=== PATIENT | female | born 1950 | race Caucasian/White ===

== ENCOUNTER 2016-03-30 11:39 | Observation (INO) | payer MEDICARE, OTHER ==
[~2016-03-30] VITALS: Ht 149.9 cm; Wt 56.7 kg
[~2016-03-30 11:39] MED LIST: CIPRO PO; FAMO10TA43 PO; FLAGYL PO; [UNRECOGNIZED DRUG - CODE] PO
[2016-03-30] MEDS ORDERED: ONDANSETRON 4 MG/2 ML (SDV) Z0FRAN IVP ONE ×2 (11:45→13:15)
[2016-03-30] MEDS ORDERED: RX-NITROGLYCERIN 0.4 MG TAB BTL 25'S SL PRN (11:45)
[2016-03-30 12:03] LABS: BASOPHILS # (AUTO) 0.1 10^3/uL (0.0-0.1); BASOPHILS % (AUTO) 1 % (0-10); EOSINOPHILS # (AUTO) 0.1 10^3/uL (0.0-0.3); EOSINOPHILS % (AUTO) 2 % (0-10); LYMPHOCYTES # (AUTO) 2.8 X 10^3 (1.0-4.0); LYMPHOCYTES % (AUTO) 38 % (12-44); MEAN CORPUSCULAR HEMOGLOBIN 32 PG (25-34); MEAN CORPUSCULAR HGB CONC 33 G/DL (32-36); MEAN CORPUSCULAR VOLUME 96 FL (80-99); MEAN PLATELET VOLUME 9.2 FL (7.4-10.4); MONOCYTES # (AUTO) 0.6 X 10^3 (0.0-1.0); MONOCYTES % (AUTO) 9 % (0-12); NEUTROPHILS # (AUTO) 3.8 X 10^3 (1.8-7.8); NEUTROPHILS % (AUTO) 51 % (42-75); PLATELET COUNT 361 10^3/uL (130-400); RED BLOOD COUNT 4.57 10^6/uL (4.35-5.85); RED CELL DISTRIBUTION WIDTH 12.7 % (10.0-14.5); WHITE BLOOD COUNT 7.4 10^3/uL (4.3-11.0)
[2016-03-30] MEDS ORDERED: BUDE10.2 IH (12:06)
[2016-03-30] MEDS ORDERED: DICY20TA10 PO (12:06)
[2016-03-30] MEDS ORDERED: TIOT18CA2 IH (12:06)
[2016-03-30] MEDS ORDERED: DICY10CA12 PO (12:07)
[2016-03-30 12:13] LABS: PROTHROMBIN TIME PATIENT 12.7 SEC (12.2-14.7)
--- NOTE | 2016-03-30 12:23 | Diagnostic Imaging Report ---
INDICATION: Chest tightness and nausea with dyspnea. 1213 hrs. Comparison is made to study of 05/21/2015. Overall heart size and pulmonary vascularity remain within normal limits. There is extensive air trapping in the upper lobes. No pneumothorax is identified. There is no evidence of significant pleural fluid. IMPRESSION: Emphysema similar to previous study without new abnormality identified. Dictated by: Dictated on workstation # [id number]
[2016-03-30 13:10] LABS: ALANINE AMINOTRANSFERASE 17 U/L (0-55); ALBUMIN 4.1 G/DL (3.2-4.5); AMYLASE 22 U/L (25-125); ANION GAP 11 MMOL/L (5-14); ASPARTATE AMINO TRANSFERASE 16 U/L (5-34); BILIRUBIN,TOTAL 0.2 MG/DL (0.1-1.0); BLOOD UREA NITROGEN 12 MG/DL (7-18); BUN/CREATININE RATIO 16; CALCIUM 9.3 MG/DL (8.5-10.1); CARBON DIOXIDE 23 MMOL/L (21-32); CHLORIDE 104 MMOL/L (98-107); CREATINE KINASE 81 U/L (29-168); CREATININE SERUM 0.74 MG/DL (0.60-1.30); GFR ESTIMATED > 60; GLUCOSE 121 MG/DL (70-105); LIPASE 19 U/L (8-78); POTASSIUM 4.3 MMOL/L (3.6-5.0); SODIUM 138 MMOL/L (135-145)
[2016-03-30] MEDS ORDERED: PANTOPRAZOLE 40 MG/10 ML (PROTONIX) VIAL IV ONE (13:15)
[2016-03-30 13:17] LABS: TROPONIN I < 0.30 NG/ML (<0.30)
[2016-03-30] MEDS ORDERED: ENOXAPARIN 60 MG/0.6 ML (LOVENOX) SYR SC ONE (13:30)
--- OUTSIDE RECORDS SUMMARY | 2016-03-30 13:34 | XMS REPORT | Continuity of Care Document ---
Author Author [facility] Organization [facility] Address Unknown Phone Unavailable Allergies Active Description Code Type Severity Reaction Onset Reported/Identified Relationship to Patient Clinical Status Yes codeine [id number] Drug Allergy Moderate VOMITING 06/01/2011 Yes aspirin [id number] Drug Allergy Moderate SWELLING AROUND 06/02/2011 Medications Problems Date Dx Coded Attending Type Code Diagnosis Diagnosed By 06/03/2011 Ot 305.1 06/03/2011 Ot 455.3 06/03/2011 Ot 496 06/03/2011 Ot 562.10 06/03/2011 Ot 787.02 03/11/2015 Ot 719.45 03/11/2015 Ot 786.30 03/11/2015 JANINE GARCIA, NAOMY R Ot 719.45 03/11/2015 JANINE GARCIA, NAOMY R Ot 780.60 03/11/2015 JANINE GARCIA, NAOMY R Ot 780.79 03/17/2015 Ot 719.45 03/17/2015 Ot 786.30 03/17/2015 JANINE GARCIA, NAOMY R Ot 719.45 03/17/2015 JANINE GARCIA, NAOMY R Ot 780.60 03/17/2015 JANINE GARCIA, NAOMY R Ot 780.79 03/20/2015 Ot 719.45 03/20/2015 Ot 786.30 03/20/2015 JANINE GARCIA, NAOMY R Ot 719.45 03/20/2015 JANINE GARCIA, NAOMY R Ot 780.60 03/20/2015 JANINE GARCIA, NAOMY R Ot 780.79 03/20/2015 EFRAIN GARCIA FACC, ALI FACP CCDS Ot J43.8 03/20/2015 EFRAIN GARCIA FACC, ALI FACP CCDS Ot R06.02 03/20/2015 EFRAIN GARCIA FACC, ALI FACP CCDS Ot R07.89 03/20/2015 EFRAIN GARCIA FACC, ALI FACP CCDS Ot Z72.0 03/25/2015 EFRAIN GARCIA FACC, ALI FACP CCDS Ot J43.8 03/25/2015 EFRAIN GARCIA FACC, ALI FACP CCDS Ot R06.02 03/25/2015 EFRAIN GARCIA FACC, ALI FACP CCDS Ot R07.89 03/25/2015 EFRAIN MD FACC, ALI FACP CCDS Ot Z72.0 04/09/2015 EFRAIN GARCIA FACC, ALI FACP CCDS Ot J43.8 04/09/2015 EFRAIN MD FACC, ALI FACP CCDS Ot R06.02 04/09/2015 EFRAIN MD FACC, ALI FACP CCDS Ot R07.89 04/09/2015 EFRAIN GARCIA FACC, ALI FACP CCDS Ot Z72.0 04/11/2015 EFRAIN GARCIA FACC, ALI FACP CCDS Ot J43.8 04/11/2015 EFRAIN GARCIA FACC, ALI FACP CCDS Ot R06.02 04/11/2015 EFRAIN GARCIA FACC, ALI FACP CCDS Ot R07.89 04/11/2015 EFRAIN MD FACC, ALI FACP CCDS Ot Z72.0 04/17/2015 EFRAIN GARCIA FACC, ALI FACP CCDS Ot J43.8 04/17/2015 EFRAIN GARCIA FACC, ALI FACP CCDS Ot R06.02 04/17/2015 EFRAIN GARCIA FACC, ALI FACP CCDS Ot R07.89 04/17/2015 EFRAIN GARCIA FACC, ALI FACP CCDS Ot Z72.0 04/17/2015 EFRAIN GARCIA FACC, ALI FACP CCDS Ot J43.8 04/17/2015 EFRAIN GARCIA FACC, ALI FACP CCDS Ot R06.02 04/17/2015 EFRAIN GARCIA FACC, ALI FACP CCDS Ot R07.89 04/17/2015 EFRAIN GARCIA FACC, ALI FACP CCDS Ot Z72.0 04/21/2015 EFRAIN GARCIA FACC, ALI FACP CCDS Ot J43.8 04/21/2015 EFRAIN GARCIA FACC, ALI FACP CCDS Ot R06.02 04/21/2015 EFRAIN GARCIA FACC, ALI FACP CCDS Ot R07.89 04/21/2015 EFRAIN GARCIA FACC, ALI FACP CCDS Ot Z72.0 05/22/2015 GRACIELA MORAN DO Ot J44.9 05/22/2015 GRACIELA MORAN DO Ot R06.02 05/22/2015 GRACIELA MORAN DO Ot Z72.0 05/27/2015 GRACIELA MORAN DO Ot J44.9 CHRONIC OBSTRUCTIVE PULMONARY DISEASE, U 05/27/2015 GRACIELA MORAN DO Ot R06.02 SHORTNESS OF BREATH 05/27/2015 GRACIELA MORAN DO Ot Z72.0 TOBACCO USE 06/11/2015 GRACIELA MORAN DO Ot J44.9 CHRONIC OBSTRUCTIVE PULMONARY DISEASE, U 06/11/2015 GRACIELA MORAN DO Ot R06.02 SHORTNESS OF BREATH 06/11/2015 GRACIELA MORAN DO Ot Z72.0 TOBACCO USE 06/26/2015 GRACIELA MORAN DO Ot J44.9 CHRONIC OBSTRUCTIVE PULMONARY DISEASE, U 06/26/2015 GRACIELA MORAN DO Ot R06.02 SHORTNESS OF BREATH 06/26/2015 LUISA DEL ANGEL GRACIELA Saldivar Ot Z72.0 TOBACCO USE 06/26/2015 GRACIELA MORAN DO Ot J44.9 CHRONIC OBSTRUCTIVE PULMONARY DISEASE, U 06/26/2015 GRACIELA MROAN DO Ot R06.02 SHORTNESS OF BREATH 06/26/2015 LUISA DEL ANGEL GRACIELA Saldivar Ot Z72.0 TOBACCO USE Procedures Results Encounters ACCT No. Visit Date/Time Discharge Status Pt. Type Provider Facility Loc./Unit Complaint [id number] 11/15/2012 14:52:00 2012 23:59:59 CLS Outpatient NAOMY MEHTA MD [facility] RAD [id number] 05/21/2015 14:01:00 ACT Outpatient GRACIELA MORAN DO [facility] RT [id number] 03/20/2015 07:19:00 ACT Outpatient EFRAIN GARCIA FACC, CESAR LARA CCDS [facility] CARD [id number] 03/17/2015 13:13:00 ACT Outpatient CESAR ZUNIGA MD, FACC, FACP CCDS [facility] CARD [id number] 03/11/2015 12:37:00 Document Registration [id number] 06/01/2011 13:55:00 Document Registration [id number] 12/04/2009 10:59:00 Document Registration
--- NOTE | 2016-03-30 14:57 | ED Cardiac General ---
History of Present Illness General Chief Complaint: Chest Pain Stated Complaint: CHEST PAIN Nursing Triage Note: PT REPORTS CHEST TIGHTNESS STARTING ABOUT 1000 TODAY. PT ALSO REPROTS EPISODES OF NAUSEA THIS AM. PT REPORTS INCREASED SOA WITH THE CHEST TIGHTNESS. Source: patient History of Present Illness Time seen by provider: 11:40 Initial Comments PT ARRIVES VIA POV FROM HOME C/O CHEST PAIN/TIGHTNESS ALL ACROSS HER CHEST--BEGAN AT 10 AM TODAY WHILE SITTING PAIN IS 5/10 NOW, BUT WAS 10/10 AT IT'S WORST STATES SHE WALKED ACROSS THE ROOM AND THOUGHT SHE WAS GOING TO PASS OUT STATES HER HEART RATE WAS 125 C/O NAUSEA AND VOMITED X 4-5 C/O SHORTNESS OF BREATH FOR THE LAST FEW DAYS NO RADIATION OF PAIN NO SWELLING IN LEGS/ FEET OR PAIN IN CALVES NO SWEATS NO COUGH OR RECENT ILLNESS HAD CHEST PAIN ONE OTHER TIME A LONG TIME AGO AND DR. MEHTA REFERRED HER TO DR. ZUNIGA, BUT REPORTEDLY NO CARDIAC PROBLEMS WERE FOUND AT THAT TIME. PT HAS COPD AND SEES DR. MORAN NTG SL HEAD OF HISTORY: No ASA po HEAD OF HISTORY: No PCP : DR. MEHTA PULMONOLOGY: DR. MORAN Allergies and Home Medications Allergies Coded Allergies: aspirin (Unverified Allergy, Intermediate, SWELLING AROUND MOUTH, VOMITING , 06/02/11) codeine (Verified Allergy, Intermediate, VOMITING, 06/01/11) ketorolac (Verified Adverse Reaction, Unknown, 03/30/16) Home Medications Acetaminophen 160 Mg Tab.chew 325 MG PO HS PRN PRN (Reported) Budesonide/Formoterol Fumarate 10.2 Gm Hfa.aer.ad 2 PUFF IH BID (Reported) Dicyclomine HCl 10 Mg Capsule #28 10 MG PO BID (Reported) Famotidine 10 Mg Tablet 10 MG PO PRN (Reported) Tiotropium [place] 1 Inh Aerp 2 PUFF IH BID (Reported) Review of Systems Constitutional: no symptoms reported EENTM: No Symptoms Reported Respiratory: See HPI Cough Shortness of Air SOA With Exertion Cardiovascular: See HPI Chest PainDenies Edema, Irregular Heart Rate Lightheadedness PalpitationsDenies Syncope Gastrointestinal: See HPIDenies Abdominal Pain, Nausea Vomiting Genitourinary: No Symptoms Reported Musculoskeletal: no symptoms reportedNo back pain Skin: no symptoms reported Psychiatric/Neurological: No Symptoms Reported Endocrine: No Symptoms Reported Hematologic/Lymphatic: No Symptoms Reported Past Qiqnxbi-Iuyyoh-Qamlvc Hx Patient Social History Alcohol Use: Rarely Uses Recreational Drug Use: No Smoking Status: Former Smoker (/ PPD, QUIT 07/2015) Type Used: Cigarettes Former Smoker/When Quit: Jul 09, 2015 2nd Hand Smoke Exposure: No Recent Foreign Travel: No Contact w/Someone Who Travel: No Recent Infectious Disease Expo: No Recent Hopitalizations: Yes Surgeries HX Surgeries: Yes (CATARACTS BILAT, SHUNT PLACED ON SPINAL CORD; HYST-OVARIES INTACT) Surgeries: Section, Eye Surgery, Hysterectomy Respiratory Hx Respiratory Disorders: Yes (USES 2 L 02 NC AT NIGHT) Respiratory Disorders: Sleep Apnea, COPD Cardiovascular Hx Cardiac Disorders: No Neurological Hx Neurological Disorders: Yes (DETERIORATIONOF SPINAL CORD--SYRINGOMYELIA; HAD ONE SEIZURE YEARS AGO--UNKNOWN ETIOLOGY) 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, 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 Genitourinary Hx Genitourinary Disorders: No Gastrointestinal Hx Gastrointestinal Disorders: Yes Gastrointestinal Disorders: Gastroesophageal Reflux, Diverticulosis, Irritable Bowel Musculoskeletal Hx Musculoskeletal Disorders: Yes (SYRINGOMYELIA) Endocrine Hx Endocrine Disorders: No HEENT HX ENT Disorders: Yes HEENT Disorders: Cataract Cancer Hx Cancer: No Psychosocial Hx Psychiatric Problems: No Integumentary HX Skin/Integumentary Disorder: No Blood Transfusions Hx Blood Disorders: No Physical Exam Vital Signs Vital Sign - Last 12Hours 03/30/16 11:58 Temp 99.7 Pulse 108 Resp 16 B/P 162/86 Pulse Ox 96 O2 Delivery Room Air Capillary Refill : Less Than 3 Seconds General Appearance: Thin Other (MILDLY DYSPNEIC, BUT TALKS IN FULL SENTENCES) HEENT: PERRL/EOMI Neck: Full Range of Motion Normal Inspection Non Tender SuppleNo Carotid Bruit , No JVD Respiratory: Normal Breath Sounds No Accessory Muscle Use Other (MILDLY DYSPNEIC) Cardiovascular: No JVD No Murmur Normal Peripheral Pulses Tachycardia (MILD) Gastrointestinal: No Organomegaly No Pulsatile Mass Non Tender Soft Extremity: Normal Capillary Refill Normal Inspection Normal Range of Motion Non Tender No Calf Tenderness Neurologic/Psychiatric: Alert Oriented x3 No Motor/Sensory Deficits Normal Mood/Affect examining officer II-XII Norm as Tested Skin: Normal Color Warm/Dry Progress/Results/Core Measures Results/Orders Lab Results Laboratory Tests Test 03/30/16 11:55 03/30/16 12:43 Range/Units Activated Partial Thromboplast Time 29 24-35 SEC B-Type Natriuretic Peptide 14.7 <100.0 PG/ML Basophils # (Auto) 0.1 0.0-0.1 10^3/uL Basophils (%) (Auto) 1 0-10 % Eosinophils # (Auto) 0.1 0.0-0.3 10^3/uL Eosinophils (%) (Auto) 2 0-10 % Hematocrit 44 35-52 % Hemoglobin 14.5 11.5-16.0 G/DL INR Comment 1.0 0.8-1.4 Lymphocytes # (Auto) 2.8 1.0-4.0 X 10^3 Lymphocytes (%) (Auto) 38 12-44 % Mean Corpuscular Hemoglobin 32 25-34 PG Mean Corpuscular Hemoglobin Concent 33 32-36 G/DL Mean Corpuscular Volume 96 80-99 FL Mean Platelet Volume 9.2 7.4-10.4 FL Monocytes # (Auto) 0.6 0.0-1.0 X 10^3 Monocytes (%) (Auto) 9 0-12 % Neutrophils # (Auto) 3.8 1.8-7.8 X 10^3 Neutrophils (%) (Auto) 51 42-75 % Platelet Count 361 130-400 10^3/uL Prothrombin Time 12.7 12.2-14.7 SEC Red Blood Count 4.57 4.35-5.85 10^6/uL Red Cell Distribution Width 12.7 10.0-14.5 % White Blood Count 7.4 4.3-11.0 10^3/uL Alanine Aminotransferase (ALT/SGPT) 17 0-55 U/L Albumin 4.1 3.2-4.5 G/DL Alkaline Phosphatase 62 40-136 U/L Amylase Level 22 L 25-125 U/L Anion Gap 11 5-14 MMOL/L Aspartate Amino Transf (AST/SGOT) 16 5-34 U/L BUN/Creatinine Ratio 16 Blood Urea Nitrogen 12 7-18 MG/DL Calcium Level 9.3 8.5-10.1 MG/DL Carbon Dioxide Level 23 21-32 MMOL/L Chloride Level 104 98-107 MMOL/L Creatine Kinase MB 1.9 <6.6 NG/ML Creatinine 0.74 0.60-1.30 MG/DL Estimat Glomerular Filtration Rate > 60 Glucose Level 121 H 70-105 MG/DL Lipase 19 8-78 U/L Magnesium Level 2.0 1.8-2.4 MG/DL Potassium Level 4.3 3.6-5.0 MMOL/L Sodium Level 138 135-145 MMOL/L Total Bilirubin 0.2 0.1-1.0 MG/DL Total Creatine Kinase 81 29-168 U/L Total Protein 7.0 6.4-8.2 G/DL Troponin I < 0.30 <0.30 NG/ML My Orders Orders-NITA GUIDRY DO Amylase (03/30/16 11:44) Cbc With Automated Diff (03/30/16 11:44) Comprehensive Metabolic Panel (03/30/16 11:44) Creatine Kinase (03/30/16 11:44) Creatine Kinase Mb (03/30/16 11:44) Lipase (03/30/16 11:44) Partial Thromboplastin Time (03/30/16 11:44) Protime With Inr (03/30/16 11:44) Troponin I (03/30/16 11:44) Chest 1 View, Ap/Pa Only (03/30/16 11:44) O2 (03/30/16 11:44) Ekg Tracing (03/30/16 11:44) Rx-Nitroglycerin Sl Tabs (Rx-Nitrostat S (03/30/16 11:45) BNP (03/30/16 11:44) Monitor-Rhythm Ecg Trace Only (03/30/16 11:44) Magnesium (03/30/16 11:44) Ondansetron Injection (Zofran Injectio (03/30/16 11:45) Pantoprazole Injection (Protonix Injecti (03/30/16 13:15) Ondansetron Injection (Zofran Injectio (03/30/16 13:15) Medications Given in ED Current Medications Medications Dose Ordered Sig/Anne Route Start Time Stop Time Status Last Admin Dose Admin Nitroglycerin 0.4 mg UD PRN SL 03/30/16 11:45 03/30/16 12:19 0.4 MG Ondansetron HCl 4 mg ONCE ONCE IVP 03/30/16 11:45 03/30/16 13:16 DC 03/30/16 12:14 4 MG Ondansetron HCl 4 mg ONCE ONCE IVP 03/30/16 13:15 03/30/16 13:16 DC 03/30/16 13:13 4 MG Pantoprazole 40 mg ONCE ONCE IV 03/30/16 13:15 03/30/16 13:16 DC 03/30/16 13:13 40 MG Vital Signs/I&O Vital Sign - Last 12Hours 03/30/16 03/30/16 11:58 12:08 Temp 99.7 Pulse 108 Resp 16 B/P 162/86 Pulse Ox 96 O2 Delivery Room Air Room Air Blood Pressure Mean: 111 Progress Note : Progress Note NTG X 1--PAIN FREE PT IS ALLERGIC TO ASPIRIN, SO SINGLE DOSE OF LOVENOX WAS GIVEN UNEVENTFUL ER STAY ECG Initial ECG Impression Time: 11:47 Initial ECG Rate: 107 Initial ECG Rhythm: S.Tach Initial ECG Comparisson: No Previous ECG Available Diagnostic Imaging Comments CXR--COPD, CHRONIC CHANGES, NO ACUTE PROCESS--PER RADIOLOGIST REPORT @ 1207 Reviewed: Reviewed by Me Departure Communication Progress Notes 1325--SPOKE WITH DR. DANG, ACCEPTS PT FOR ADMIT. Impression Impression: Primary Impression: Chest pain Disposition: ADMITTED INPATIENT Condition: Improved Decision to Admit Reason: Admit from ER (General) Decision to Admit/Date: Mar 30, 2016 Time/Decision to Admit Time: 13:25 Departure-Patient Inst. Referrals: NAOMY MEHTA MD (PCP/Family) Primary Care Physician NITA GUIDRY DO Mar 30, 2016 14:57
[2016-03-30 15:25] VITALS: BP 159/76
[2016-03-30] MEDS ORDERED: NITROGLYCERIN SUBLINGUAL 0.4 MG TAB (NITROSTAT) SL PRN (16:00)
[2016-03-30] MEDS ORDERED: morphine INJ 4 MG/ML 1 ML (VIAL/SYRINGE) IV PRN (16:00)
[2016-03-30] MEDS ORDERED: ONDANSETRON 4 MG/2 ML (SDV) Z0FRAN IV PRN (16:30)
[2016-03-30] MEDS ORDERED: CATHETER FLUSH 10 ML SYR IV PRN (16:30)
[2016-03-30] MEDS ORDERED: ACET-93 PO (16:38)
[2016-03-30] MEDS ORDERED: FLU TRIvalent (5 YOA+) 2016-17 (AFLURIA) 0.5 ML IM ONE (16:45)
[2016-03-30 20:00] VITALS: BP 133/71
[2016-03-30] MEDS: CATHETER FLUSH 10 ML SYR IV SCH (20:39)
[2016-03-30] MEDS: FAMOTIDINE 20MG/2ML IV (PEPCID) IV SCH (20:39)
[2016-03-31] VITALS: BP 134/87
[2016-03-31 04:00] VITALS: BP 143/70
[2016-03-31 04:16] LABS: BASOPHILS % (AUTO) 1 % (0-10); EOSINOPHILS # (AUTO) 0.3 10^3/uL (0.0-0.3); EOSINOPHILS % (AUTO) 4 % (0-10); LYMPHOCYTES % (AUTO) 44 % (12-44); MEAN CORPUSCULAR HEMOGLOBIN 32 PG (25-34); MEAN CORPUSCULAR HGB CONC 33 G/DL (32-36); MEAN CORPUSCULAR VOLUME 99 FL (80-99); MONOCYTES # (AUTO) 0.6 X 10^3 (0.0-1.0); MONOCYTES % (AUTO) 9 % (0-12); NEUTROPHILS % (AUTO) 43 % (42-75); PLATELET COUNT 317 10^3/uL (130-400); RED BLOOD COUNT 4.02 10^6/uL (4.35-5.85); RED CELL DISTRIBUTION WIDTH 12.5 % (10.0-14.5); WHITE BLOOD COUNT 6.9 10^3/uL (4.3-11.0)
[2016-03-31 04:35] LABS: ALANINE AMINOTRANSFERASE 13 U/L (0-55); ALBUMIN 3.8 G/DL (3.2-4.5); ANION GAP 11 MMOL/L (5-14); ASPARTATE AMINO TRANSFERASE 16 U/L (5-34); BILIRUBIN,TOTAL 0.3 MG/DL (0.1-1.0); BLOOD UREA NITROGEN 11 MG/DL (7-18); BUN/CREATININE RATIO 14; CALCIUM 8.7 MG/DL (8.5-10.1); CARBON DIOXIDE 22 MMOL/L (21-32); CHLORIDE 106 MMOL/L (98-107); CHOLESTEROL 205 MG/DL (< 200); CREATININE SERUM 0.79 MG/DL (0.60-1.30); DIRECT LDL 139 MG/DL (1-129); GFR ESTIMATED > 60; GLUCOSE 98 MG/DL (70-105); POTASSIUM 4.3 MMOL/L (3.6-5.0); SODIUM 139 MMOL/L (135-145); TOTAL PROTEIN 6.3 G/DL (6.4-8.2); TRIGLYCERIDES 141 MG/DL (<150); VLDL CHOLESTEROL 28 MG/DL (5-40)
[2016-03-31] MEDS: FAMOTIDINE 20MG/2ML IV (PEPCID) IV SCH (04:37)
[2016-03-31] MEDS: CATHETER FLUSH 10 ML SYR IV SCH ×2 (04:38→11:03)
[2016-03-31 04:45] LABS: MYOGLOBIN SERUM 51.6 NG/ML (10.0-92.0)
[2016-03-31 08:34] VITALS: BP 150/78
[2016-03-31] MEDS ORDERED: PANTOPRAZOLE 40 MG/10 ML (PROTONIX) VIAL IV SCH (10:30)
[2016-03-31] MEDS ORDERED: fentaNYL INJECTION 100 MCG/2 ML AMP IVP PRN (10:30)
--- NOTE | 2016-03-31 11:05 | Short Stay Summary-Hospitalist ---
HPI History of Present Illness: HPI/Chief Complaint CC: Chest pain HPI: This is a 65yoWF that presented with chest pain of unknown source. Pt has recent hx of chest tightness monitored by Dr. Tirado, who has been consulted regarding current issue. 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 Pt is NPO. Pt has difficulty eating, and RN suspects that gallbladder may be cause of pts symptoms. RN states that pt does not like Morphine. Patient Interview: PCP is Dr. Renteria. Pt denies smoking and drinking ETOH. 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 Pt retired [address] Gamez discusses plans for ultrasound and stress test. Pt states that she has family hx of CAD, and once saw Dr. Tirado last year for chest tightness. Physical exam stable. Scribed by Ever Crespo under the direct supervision of Dr. Gamez. 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) Alcohol Use: Rarely Uses Recreational Drug Use: No Smoking Status: Former Smoker Former smoker/When Quit: Jul 09, 2015 Type Used: Cigarettes 2nd Hand Smoke Exposure: No Physical Abuse Screen: No Sexual Abuse: No Recent Foreign Travel: No Contact w/other who traveled: No Recent Hopitalizations: Yes Recent Infectious Disease Expo: No Seasonal Allergies Seasonal Allergies: No Surgeries HX Surgeries: Yes (CATARACTS BILAT, SHUNT PLACED ON SPINAL CORD; HYST-OVARIES INTACT) Surgeries: Section, Eye Surgery, Hysterectomy Respiratory Hx Respiratory Disorders: Yes (USES 2 L 02 NC AT NIGHT) Respiratory Disorders: Asthma Cardiovascular Hx Cardiovascular Disorders: No Neurological Hx Neurological Disorders: Yes (DETERIORATIONOF SPINAL CORD--SYRINGOMYELIA; HAD ONE SEIZURE YEARS AGO--UNKNOWN ETIOLOGY) Genitourinary Hx Genitourinary Disorders: No Gastrointestinal Hx Gastrointestinal Disorders: Yes Gastrointestinal Disorders: Gastroesophageal Reflux, Diverticulosis, Irritable Bowel Musculoskeletal Hx Musculoskeletal Disorders: Yes (SYRINGOMYELIA) Endocrine Hx Endocrine Disorders: No HEENT HX ENT Disorders: Yes HEENT Disorders: Cataract Cancer Hx Cancer: No Psychosocial Hx Psychiatric Problems: No Integumentary HX Skin/Integumentary Disorder: No Blood Transfusions Hx Blood Disorders: No Review of Systems Constitutional: see HPI EENTM: no symptoms reported Respiratory: short of breath Cardiovascular: chest pain Gastrointestinal: abdominal pain (RUQ) Genitourinary: no symptoms reported Musculoskeletal: no symptoms reported Skin: no symptoms reported Psychiatric/Neurological: No Symptoms Reported All Other Systems Reviewed Negative Unless Noted: Yes Physical Exam Physical Exam Vital Signs Vital Sign - Last 12Hours 03/30/16 03/30/16 11:58 21:00 Temp 99.7 Pulse 108 Resp 16 B/P 162/86 Pulse Ox 96 O2 Delivery Room Air O2 Flow Rate 2.00 Capillary Refill : Less Than 3 Seconds General Appearance: No Apparent Distress WD/WN Anxious Chronically ill Eyes: Bilateral Eye Normal Inspection, Bilateral Eye PERRL HEENT: PERRL/EOMI Normal ENT Inspection Pharynx Normal Neck: Full Range of Motion Normal Inspection Non Tender Supple Carotid Bruit Respiratory: Chest Non Tender Lungs Clear No Accessory Muscle Use No Respiratory Distress Decreased Breath Sounds Cardiovascular: Regular Rate, Rhythm No Edema No Gallop No JVD No Murmur Normal Peripheral Pulses Gastrointestinal: Normal Bowel Sounds No Organomegaly No Pulsatile Mass Soft Tenderness (mild RUQ) Back: Normal Inspection No CVA Tenderness No Vertebral Tenderness Extremity: Normal Capillary Refill Normal Inspection Normal Range of Motion Non Tender No Calf Tenderness No Pedal Edema Neurologic/Psychiatric: Alert Oriented x3 No Motor/Sensory Deficits Normal Mood/Affect Skin: Normal Color Warm/Dry Lymphatic: No Adenopathy Results Results/Procedures Lab Laboratory Tests 03/30/16 11:55 03/30/16 12:43 03/31/16 03:49 Short Stay Diagnosis Discharge Diagnosis-Short Stay Admission Diagnosis Assessment: Chest pain of uncertain etiology w/nausea and vomiting and RUQ abdominal pain Asthma Final Discharge Diagnosis Assessment: Chest pain of uncertain etiology w/nausea and vomiting and RUQ abdominal pain Asthma Conclusion Plan Plan: Consult Dr. Celestino MYRICK Morphine and replace with Fentanyl Restart inhalers Protonix IV empirically w/Zofran Ultrasound abdomen Stress test Clinical Quality Measures AMI/AHF: ASA po Prior to arrival: No DVT/VTE Risk/Contraindication: Risk Factor Score Per Nursin RFS Level Per Nursing on Admit: 2=Moderate NELSON GAMEZ DO Mar 31, 2016 11:05
[2016-03-31 11:50] VITALS: BP 152/76
--- NOTE | 2016-03-31 12:21 | Diagnostic Imaging Report ---
PROCEDURE: US abdomen complete. TECHNIQUE: Multiple real-time grayscale images were obtained over the abdomen in various projections. INDICATION: Abdominal pain. The previous gallbladder ultrasound exam of 12/20/2008, failed to show any sign of cholelithiasis or acute cholecystitis. The common bile duct was slightly dilated, however, measuring 9 mm. There is still no evidence for cholelithiasis or acute cholecystitis; however, there are two small (3 mm or less) echogenic nonmobile nodules adjacent to the gallbladder wall. I suspect that these are polyps. The common bile duct measures 7 to 8 mm and appears similar to the prior exam. The liver is not enlarged. There is a small 1.4 x 1.4 x 0.5-cm cystic area in the left lobe of the liver and a 0.6 x 0.4 x 0.5-cm cyst in the right lobe of the liver. These were not clearly evident on the prior ultrasound exam but were visualized on the CT abdomen/pelvis exam of 01/20/2009. The liver is otherwise unremarkable. The head and body of the pancreas are unremarkable. The tail was obscured. The spleen, kidneys, and aorta are unremarkable for an acute abnormality. There is a small 1.0 x 0.9 x 0.7-cm cyst in the midportion of the right kidney. There is no solid pelvic mass or free fluid collection noted. IMPRESSION: 1. There is still no evidence for cholelithiasis or acute cholecystitis. The common bile duct remains slightly dilated, but there is no sign of choledocholithiasis. There do appear to be small polyps within the gallbladder. 2. If clinical concern regarding an underlying abnormality of the gallbladder persists, then a nuclear medicine hepatobiliary scan would be recommended for further study. 3. There is no acute abnormality of the abdomen identified otherwise. 4. There are small cysts within the liver and in the right kidney. Dictated by: Dictated on workstation # [id number]
[2016-03-31] MEDS ORDERED: OMEP20CA12 PO (13:16)
[2016-03-31] MEDS ORDERED: ONDA8TAB9 PO (13:16)
[2016-03-31] MEDS ORDERED: SUCR1TAB36 PO (13:16)
--- NOTE | 2016-03-31 17:01 | Consultation-Cardiology ---
HPI-Cardiology Cardiology Consultation: Date of Consultation 03/31/16 Date of Admission 03/30/16 Attending Physician Paul Renteria MD Admitting Physician Paul Renteria MD Consulting Physician CESAR ZUNIGA MD, FACP, FACC HPI: Chief Complaint: Chest discomfort 65 yo woman with appox 10 days of continuous lower chest discomfort and epigastric discomfort that has waxed and waned but not resolved. Much worse yesterday. Admitted to Dr Freeman. Currently feels better. Notes dysphagia for several months to a year, gradually worsening, equally to solids and liquids. Chronic shortness of breath. Has dizziness intermittently, but no syncope. Had vomiting yesterday. Has chronic intermittent nausea. No leg swelling. No fever or chills Review of Systems-Cardiology Review of Systems Constitutional: No malaise, No weight loss, No weight gain Eyes: No vision change Ears/Nose/Throat: No ear discharge, No nasal drainage, other (chronic hearing loss) Respiratory: As described under HPI Cardiovascular: As described under HPI Gastrointestinal: As described under HPI Genitourinary: No dysuria, No hematuria, No urine frequency changes Musculoskeletal: back pain (chronic ) Psychiatric/Neurological: No focal weakness, No seizure, No syncope Hematologic: No bleeding abnormalities All Other Systems Reviewed Negative Unless Noted: Yes FJP-Cxykrh-Evabtu Hx Patient Social History Marrital Status: single 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 Family Medical History Family Medical History: Mother had heart attack in her mid 60s. Brother had CHF in his 60s. Sister had CABG in her 50s. Another brother had CABG in his 50s and yet another in his 40s Allergies and Home Medications Allergies Coded Allergies: aspirin (Unverified Allergy, Intermediate, SWELLING AROUND MOUTH, VOMITING , 06/02/11) codeine (Verified Allergy, Intermediate, VOMITING, 06/01/11) ketorolac (Verified Adverse Reaction, Unknown, 03/30/16) Home Medications Acetaminophen 500 Mg Tablet 1,500 MG PO DAILY PRN PRN PRN PAIN (Reported) TAKES 3 (500 MG) TABLETS Budesonide/Formoterol Fumarate 10.2 Gm Hfa.aer.ad 2 PUFF IH BID (Reported) Famotidine 10 Mg Tablet 10 MG PO DAILY PRN PRN INDIGESTION (Reported) Omeprazole 20 Mg Capsule.dr #30 20 MG PO DAILY Prescribed by: NELSON FREEMAN on 03/31/161315 Ondansetron 8 Mg Tab.rapdis #30 8 MG PO Q6H PRN PRN NAUSEA Prescribed by: NELSON FREEMAN on 03/31/16 1316 Sucralfate 1 Gm Tablet #60 1 GM PO ACHS Prescribed by: NELSON FREEMAN on 03/31/16 1316 Tiotropium [place] 1 Inh Aerp 2 PUFF IH DAILY (Reported) Physical Exam-Cardiology Physical Exam Vital Signs/I&O Vital Sign - Last 12Hours 03/31/16 03/31/16 03/31/16 03/31/16 07:00 08:00 08:34 08:35 Temp 98.4 Pulse 81 82 Resp 20 B/P 150/78 Pulse Ox 95 94 94 O2 Delivery Room Air Room Air 03/31/16 03/31/16 03/31/16 03/31/16 11:19 11:50 13:00 15:13 Temp 99.1 Pulse 87 82 Resp 20 B/P 152/76 Pulse Ox 95 94 95 O2 Delivery Room Air Intake and Output 03/31/16 00:00 Intake Total 940 ml Output Total 550 ml Balance 390 ml Capillary Refill : Less Than 3 Seconds Constitutional: AAO x 3 well-developed well-nourished HEENT: PERRL EOMI hard of hearing Neck: carotid pulses are 2 + bilaterally with good upstrokes Respiratory: No accessory muscle use, other (fair air entry, prolonged exp) Cardiovascular: regular rate-rhythm S1 and S2 systolic murmur (faint NALDO at cardiac base) Gastrointestinal: No tender, softNo guarding, No rebound, audible bowel sounds Extremities: No clubbing, No cyanosis, No significant edema Skin: No rash on exposed areas, No ulcerations on exposed areas Data Review Labs Laboratory Tests 03/30/16 18:52: Troponin I < 0.30 03/31/16 03:49: Alanine Aminotransferase (ALT/SGPT) 13, Albumin 3.8, Alkaline Phosphatase 57, Anion Gap 11, Aspartate Amino Transf (AST/SGOT) 16, BUN/Creatinine Ratio 14, Basophils # (Auto) 0.0, Basophils (%) (Auto) 1, Blood Urea Nitrogen 11, Calcium Level 8.7, Carbon Dioxide Level 22, Chloride Level 106, Cholesterol Level 205H, Creatinine 0.79, Eosinophils # (Auto) 0.3, Eosinophils (%) (Auto) 4, Estimat Glomerular Filtration Rate > 60, Glucose Level 98, HDL Cholesterol 47, Hematocrit 40, Hemoglobin 13.0, LDL Cholesterol Direct 139H, Lymphocytes # (Auto ) 3.0, Lymphocytes (%) (Auto) 44, Mean Corpuscular Hemoglobin 32, Mean Corpuscular Hemoglobin Concent 33, Mean Corpuscular Volume 99, Mean Platelet Volume 9.0, Monocytes # (Auto) 0.6, Monocytes (%) (Auto) 9, Myoglobin 51.6, Neutrophils # (Auto) 3.0, Neutrophils (%) (Auto) 43, Platelet Count 317, Potassium Level 4.3, Red Blood Count 4.02L, Red Cell Distribution Width 12.5, Sodium Level 139, Total Bilirubin 0.3, Total Protein 6.3L, Triglycerides Level 141, VLDL Cholesterol 28, White Blood Count 6.9 Laboratory Tests 03/30/16 11:55 03/30/16 12:43 03/31/16 03:49 ECG Impression ECG Comment ECG 03/31/16: NSR without evidence of ischemia or infarction, not significantly changed compared to a study of 03/30/16 A/P-Cardiology Assessment/Admission Diagnosis Chest discomfort (continuous) and dysphagia, suggestive of a GI etiology No evidence of ACS Echocardiogram from Mar 17, 2015 showed normal global LV systolic function with an ejection fraction of approx 60%. Mild MR, TR and AoR. PASP 35mmHg. Mild aortic vlavle sclerosis without evidence of significant valvular stenosis MPI of Mar 20, 2015 showed no evidence of any significant myocardial ischemia or infarction. Normal regional wall motion. LVEF 67%. Normal LV cavity size. 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 She states she will think about it * For GI eval and eval for other non-card causes of chest discomfort we have asked us her to check with Dr Freeman and her pcp * Outpatient card f/u is advised * I spoke with her and her daughter in detail and answered questions Clinical Quality Measures AMI/AHF: ASA po Prior to arrival: No DVT/VTE Risk/Contraindication: Risk Factor Score Per Nursin RFS Level Per Nursing on Admit: 2=Moderate CESAR ZUNIGA MD FACP FAC CCDS Mar 31, 2016 17:01
[2016-03-31] MEDS ORDERED: RT-ADVAIR HFA 115/21 MCG PER PUFF IH SCH (20:00)
[2016-04-01] MEDS ORDERED: TIOTROPIUM BROMIDE (SPIRIVA) 5'S INHALER IH SCH ×2 (08:00)
[2016-04-01] MEDS ORDERED: UMECLIDINIUM BROMIDE (INCRUSE ELLIPTA) 7'S IH SCH (08:00)
== END 2016-03-31 13:17 | disposition home or self-care (01) ==
LOC: EDUNIT# 11:39 → ER 11:41 → ICU 13:25 → UNDOADMOB 13:25 → ICU 15:20 → CSD 03-31 08:05 → ICU 03-31 08:05 → UNDODISOB 03-31 17:40
PROVIDERS: ADMIT Internal Medicine; ATTEND Family Medicine
DX: R07.9 Chest pain, unspecified (principal); R11.2 Nausea with vomiting, unspecified; R10.11 Right upper quadrant pain; J44.9 Chronic obstructive pulmonary disease, unspecified; K21.9 Gastro-esophageal reflux disease without esophagitis; Z87.891 Personal history of nicotine dependence
CPT/HCPCS: 36415; 71010; 76700; 80053; 80061; 82150; 82550; 82553; 83690; 83735; 83874; 83880; 84484; 85025; 85610; 85730; 93005; 93041; 96372; 96374; 96375; 96376; G0378

== ENCOUNTER 2016-04-30 14:20 | Outpatient (CLI) | payer MEDICARE ==
[~2016-04-30] VITALS: Ht 149.9 cm; Wt 53.2 kg
[~2016-04-30 14:20] MED LIST changes: +ACET-93 PO; +BUDE10.2 IH; +DICY10CA12 PO; +DICY20TA10 PO; +OMEP20CA12 PO; +ONDA8TAB9 PO; +SUCR1TAB36 PO; +TIOT18CA2 IH
== END 2016-04-30 14:35 ==
LOC: PREOP 14:20
PROVIDERS: ATTEND Surgery
DX: Z01.818 Encounter for other preprocedural examination (principal); R19.7 Diarrhea, unspecified; R10.13 Epigastric pain

== ENCOUNTER 2016-05-03 08:54 | Day surgery (SDC) | payer MEDICARE, OTHER ==
[~2016-05-03] VITALS: Ht 149.9 cm; Wt 53.2 kg
[2016-05-03] MEDS ORDERED: FLUMAZENIL (ROMAZICON) 0.1 MG/ML 5 ML VIAL INJ PRN (09:15)
[2016-05-03] MEDS ORDERED: NALOXONE 0.4 MG/ML 1 ML (NARCAN) VIAL IVP PRN (09:15)
[2016-05-03] MEDS ORDERED: NS IV 500 ML 500 ML IV ONE (09:15)
[2016-05-03] MEDS ORDERED: HURRICAINE EXT TUBE (BENZOCAINE) XX PRN (09:15)
--- NOTE | 2016-05-03 09:24 | Pre-Op Note & Conscious Sedat ---
Pre-Operative Progress Note H&P Reviewed The H&P was reviewed, patient examined and no changes noted. Date H&P Reviewed: May 03, 2016 Time H&P Reviewed: 09:23 Pre-Op Diagnosis: epigastric pain. diarrhea Conscious Sedation Pre-Proced Airway Mallampati Classification: (knik appropriate class) I. II. III, IV Lungs Heart ASA score ASA 1: a normal healthy patient ASA 2: a patient with a mild systemic disease (mid diabetes, controlled hypertension, obesity ASA 3: a patient with a severe systemic disease that limits activity (angina , COPD, prior Myocardial infarction) ASA 4: a patient with an incapacitating disease that is a constant threat to life (CHF, renal failure) ASA 5: a moribund patient not expected to survive 24 hrs. (ruptured aneurysm) ASA 6: a declared brain patient whose organs are being harvested. For emergent operations, add the letter E after the classification Note The patient is an appropriate candidate to undergo the planned procedure, sedation, and anesthesia. The patient immediately re-assessed prior to indication. MELCHOR COTTO MD May 03, 2016 9:24 am
[2016-05-03 09:32] VITALS: BP 141/72
[2016-05-03] MEDS ORDERED: MIDAZOLAM 2 MG/2 ML (VERSED) VIAL ONE ×4 (09:40)
[2016-05-03] MEDS ORDERED: HURRICAINE EXT TUBE (BENZOCAINE) ONE (09:41)
[2016-05-03] MEDS ORDERED: fentaNYL INJECTION 100 MCG/2 ML AMP ONE ×2 (09:41)
[2016-05-03] MEDS: fentaNYL INJECTION 100 MCG/2 ML AMP IVP PRN ×3 (09:55→10:15)
[2016-05-03] MEDS: MIDAZOLAM 2 MG/2 ML (VERSED) VIAL IVP PRN ×3 (09:57→10:13)
--- NOTE | 2016-05-03 10:30 | Progress Note-Post Operative ---
Post-Operative Progess Note Pre-Operative Diagnosis epigastric pain. diarrhea Post-Operative Diagnosis EGD: Tortuous esophagus with a distal stricture. Stomach and duodenum normal Incomplete colonoscopy: sigmoid diverticulosis Post-Op Procedure Note Date of Procedure: May 03, 2016 Name of Procedure: EGD with balloon dilatation Flexible sigmoidoscopy Anesthesia Type sedation MELCHOR COTTO MD May 03, 2016 10:30 am
--- NOTE | 2016-05-03 10:31 | Discharge Inst-Simple/Standard ---
Discharge Inst-Standard Discharge Medications New, Converted or Re-Newed RX: Other Patient Instructions/Follow Up Plan of Care/Instructions/FU: please obtain CT of abdomen and pelvis without any contrast today Activity as Tolerated: Yes Discharge Diet: No Restrictions MELCHOR COTTO MD May 03, 2016 10:31 am
[2016-05-03 10:55] VITALS: BP 158/86
--- NOTE | 2016-05-03 10:55 | PROCEDURE REPORT ---
PROCEDURE PHYSICIAN: MELCHOR COTTO DATE OF PROCEDURE: 05/03/2016 PROCEDURE: 1. Upper GI endoscopy with balloon dilatation. 2. Flexible sigmoidoscopy. SURGEON: Florentino INDICATION FOR THE PROCEDURE: This lady came in for an upper endoscopy to evaluate dysphagia and symptoms of reflux disease and for colonoscopy to investigate diarrhea and right-sided abdominal pain. Informed consent was obtained after reviewing the procedures in detail. DESCRIPTION OF PROCEDURE: 1. UPPER GI ENDOSCOPY/BALLOON DILATATION: She was placed in left lateral decubitus position and her vital signs were monitored. Conscious sedation was achieved using Versed and fentanyl. The flexible gastroscope was then introduced down the esophagus, past the stomach, into the proximal duodenum. FINDINGS: ESOPHAGUS: Quite tortuous with a smooth, concentric stricture at the distal end. It had the appearance of a peptic stricture. The stricture was dilated to 18 mm with a balloon. STOMACH AND DUODENUM: Were normal. She tolerated the procedure well and was turned around in preparation for colonoscopy. IMPRESSION: 1. Dysphagia and epigastric pain. 2. Tortuous esophagus with a peptic stricture. 3. Balloon dilatation completed. 2. INCOMPLETE COLONOSCOPY/FLEXIBLE SIGMOIDOSCOPY: Examination of the perianal area revealed external skin tags. Digital examination was unremarkable. The colonoscope was then introduced into the rectum and advanced to the distal sigmoid colon. Despite multiple attempts, sigmoid colon could not be negotiated. It is likely that she has diverticular disease contributing to the difficulty. Therefore, further attempts were abandoned, in preparation for a CT scan with reconstruction of the colon. She tolerated the procedures well and was taken back to the nursing area in a stable condition. IMPRESSION: 1. Diarrhea and right-sided abdominal pain. 2. Incomplete colonoscopy. 3. CT scan pending. Job ID: [id number] Dictated Date: 05/03/2016 10:28:32 Slate Worker Date: 05/03/2016 10:49:07 / noah CAMP
[2016-05-03 11:25] VITALS: BP 138/94
--- NOTE | 2016-05-03 11:47 | Diagnostic Imaging Report ---
PROCEDURE: CT abdomen and pelvis without contrast. TECHNIQUE: Multiple contiguous axial images were obtained through the abdomen and pelvis without the use of intravenous contrast. INDICATION: Incomplete colonoscopy. FINDINGS: Lateral right lung base nodule unchanged from 2012 compatible with benign etiology is seen. There is a small hiatal hernia. The liver demonstrates a hypodense lesion measuring 1.1 cm in the left hepatic lobe not definitely seen on the previous exam. This is too small to characterize accurately. The recent liver ultrasound demonstrated a cystic lesion probably corresponding to this area in the left hepatic lobe. The gallbladder demonstrates no calcified stones. The spleen is not enlarged. The adrenals and the pancreas appear grossly unremarkable. There is no hydronephrosis. Pelvic calcifications likely related to phleboliths and sutures seen from suggested prior hysterectomy. There is no urinary tract stone identified. Minimal vascular calcifications in the left renal hilum seen. The abdominal aorta is normal in caliber. No para-aortic significantly enlarged lymph node is seen. There is extensive diverticulosis in the sigmoid colon. No diverticulitis. There is generally mild distention of the colon with air with no significant amount of fecal material noted. A small air-fluid level in the cecum is seen. Slightly prominent folds are seen in the colon with no definite mass. No bowel obstruction. No significant free fluid or fluid collection in the abdomen or pelvis seen. The osseous structures demonstrate a focus of sclerosis in the intertrochanteric region on the right side measuring 5 mm stable from 2012 compatible with a bony island. IMPRESSION: Sigmoid diverticulosis. No diverticulitis. Dictated by: Dictated on workstation # [id number]
[2016-05-03 12:05] VITALS: BP 138/94
--- OUTSIDE RECORDS SUMMARY | 2016-05-18 17:12 | XMS REPORT | Continuity of Care Document ---
Author Author [facility] Organization [facility] Address Unknown Phone Unavailable Allergies Active Description Code Type Severity Reaction Onset Reported/Identified Relationship to Patient Clinical Status Yes codeine [id number] Drug Allergy Moderate VOMITING 06/01/2011 Yes aspirin [id number] Drug Allergy Moderate SWELLING AROUND 06/02/2011 Yes ketorolac [id number] Drug Allergy Unknown N/A 03/30/2016 Medications Problems Date Dx Coded Attending Type Code Diagnosis Diagnosed By 06/03/2011 Ot 305.1 TOBACCO USE DISORDER 06/03/2011 Ot 455.3 EXT HEMORRHOID W/O COMPL 06/03/2011 Ot 496 CHR AIRWAY OBSTRUCT NEC 06/03/2011 Ot 562.10 DIVERTICULOSIS COLON (W/O MENT OF HEMORR 06/03/2011 Ot 787.02 NAUSEA ALONE 03/11/2015 Ot 719.45 03/11/2015 Ot 786.30 03/11/2015 [...] R Ot 780.79 03/20/2015 EFRAIN GARCIA FACC, CESAR SOTELOP CCDS Ot J43.8 03/20/2015 EFRAIN GARCIA FACC, ALI FACP CCDS Ot R06.02 03/20/2015 EFRAIN GARCIA FACC, ALI FACP CCDS Ot R07.89 03/20/2015 EFRAIN GARCIA FACC, ALI FACP CCDS Ot Z72.0 03/25/2015 EFRAIN GARCIA FACC, ALI FACP CCDS Ot J43.8 03/25/2015 EFRAIN GARCIA FACC, ALI FACP CCDS Ot R06.02 03/25/2015 EFRAIN GARCIA FACC, ALI FACP CCDS Ot R07.89 03/25/2015 EFRAIN GARCIA FACC, ALI FACP CCDS Ot Z72.0 04/09/2015 EFRAIN GARCIA FACC, ALI FACP CCDS Ot J43.8 04/09/2015 EFRAIN GARCIA FACC, ALI FACP CCDS Ot R06.02 04/09/2015 EFRAIN GARCIA FACC, ALI FACP CCDS Ot R07.89 04/09/2015 EFRAIN GARCIA FACC, ALI FACP CCDS Ot Z72.0 04/11/2015 EFRAIN GARCIA FACC, ALI FACP CCDS Ot J43.8 04/11/2015 EFRAIN GARCIA FACC, ALI FACP CCDS Ot R06.02 04/11/2015 EFRAIN GARCIA FACC, ALI FACP CCDS Ot R07.89 04/11/2015 EFRAIN GARCIA FACC, ALI FACP CCDS [...] FACC, ALI FACP CCDS Ot R07.89 04/17/2015 EFRANI GARCIA FACC, ALI FACP CCDS Ot Z72.0 04/21/2015 EFRAIN GARCIA FACC, ALI FACP CCDS Ot J43.8 04/21/2015 EFRAIN MD FACC, ALI FACP CCDS Ot R06.02 04/21/2015 EFRAIN GARCIA [facility], ALI FACP CCDS Ot R07.89 04/21/2015 EFRAIN GARCIA FACC, ALI FACP CCDS Ot Z72.0 05/22/2015 LUISA DEL ANGEL GRACIELA Saldivar Ot J44.9 05/22/2015 GRACIELA MORAN DO Ot R06.02 05/22/2015 LUISA DEL ANGEL GRACIELA Saldivar Ot Z72.0 05/27/2015 LUISA DO GRACIELA Saldivar Ot J44.9 CHRONIC OBSTRUCTIVE PULMONARY DISEASE, U 05/27/2015 LUISA DEL ANGEL GRACIELA Saldivar Ot R06.02 SHORTNESS OF BREATH 05/27/2015 LUISA DEL ANGEL GRACIELA Saldivar Ot Z72.0 TOBACCO USE 06/11/2015 LUISA DEL ANGEL GRACIELA Saldivar Ot J44.9 CHRONIC OBSTRUCTIVE PULMONARY DISEASE, U 06/11/2015 LUISA DEL ANGEL GRACIELA Saldivar Ot R06.02 SHORTNESS OF BREATH 06/11/2015 LUISA DEL ANGEL GRACIELA Saldivar Ot Z72.0 TOBACCO USE 06/26/2015 LUISA DEL ANGEL GRACIELA Saldivar Ot J44.9 CHRONIC OBSTRUCTIVE PULMONARY DISEASE, U 06/26/2015 LUISA DEL ANGEL GRACIELA Saldivar Ot R06.02 SHORTNESS OF BREATH 06/26/2015 LUISA DEL ANGEL GRACIELA Saldivar Ot Z72.0 TOBACCO USE 06/26/2015 LUISA DEL ANGEL GRACIELA Saldivar Ot J44.9 CHRONIC OBSTRUCTIVE PULMONARY DISEASE, U 06/26/2015 LUISA DEL ANGEL GRACIELA Saldivar Ot R06.02 SHORTNESS OF BREATH 06/26/2015 LUISA DEL ANGEL GRACIELA Saldivar Ot Z72.0 TOBACCO USE 03/30/2016 JANINE GARCIA, NAOMY R Ot 719.45 JOINT PAIN-PELVIS 03/30/2016 JANINE GARCIA, NAOMY R Ot 780.60 FEVER, UNSPECIFIED 03/30/2016 NAOMY MEHTA MD R Ot 780.79 OTH MALAISE FATIGUE 03/30/2016 EFRAIN GARCIA FACC, ALI FACP CCDS Ot J43.8 OTHER EMPHYSEMA 03/30/2016 EFRAIN GARCIA FACC, CESAR FACP CCDS Ot R06.02 SHORTNESS OF BREATH 03/30/2016 EFRAIN GARCIA FACC, CESAR FACP CCDS Ot R07.89 OTHER CHEST PAIN 03/30/2016 EFRAIN GARCIA [facility], ALI FACP CCDS Ot Z72.0 TOBACCO USE 03/30/2016 EFRAIN GARCIA FAC, ALI FACP CCDS Ot J43.8 OTHER EMPHYSEMA 03/30/2016 EFRAIN GARCIA FAC, ALI FACP CCDS Ot R06.02 SHORTNESS OF BREATH 03/30/2016 EFRAIN GARCIA FAC, ALI FACP CCDS Ot R07.89 OTHER CHEST PAIN 03/30/2016 EFRAIN GARCIA FAC, ALI FACP CCDS Ot Z72.0 TOBACCO USE 03/30/2016 GRACIELA MORAN DO Ot J44.9 CHRONIC OBSTRUCTIVE PULMONARY DISEASE, U 03/30/2016 GRACIELA MORAN DO Ot R06.02 SHORTNESS OF BREATH 03/30/2016 GRACIELA MORAN DO Ot Z72.0 TOBACCO USE 03/30/2016 NAOMY MEHTA MD R Ot 719.45 JOINT PAIN-PELVIS 03/30/2016 NAOMY MEHTA MD R Ot 780.60 FEVER, UNSPECIFIED 03/30/2016 NAOMY MEHTA MD R Ot 780.79 OTH MALAISE FATIGUE 03/30/2016 EFRAIN GARCIA [facility], ALI FACP CCDS Ot J43.8 OTHER EMPHYSEMA 03/30/2016 EFRAIN GARCIA [facility], ALI FACP CCDS Ot R06.02 SHORTNESS OF BREATH 03/30/2016 EFRAIN GARCIA [facility], ALI FACP CCDS Ot R07.89 OTHER CHEST PAIN 03/30/2016 EFRAIN GARCIA [facility], ALI FACP CCDS Ot Z72.0 TOBACCO USE 03/30/2016 EFRAIN GARCIA FAC, ALI FACP CCDS Ot J43.8 OTHER EMPHYSEMA 03/30/2016 EFRAIN GARCIA [facility], ALI FACP CCDS Ot R06.02 SHORTNESS OF BREATH 03/30/2016 EFRAIN GARCIA FAC, ALI FACP CCDS Ot R07.89 OTHER CHEST PAIN 03/30/2016 EFRAIN GARCIA FAC, ALI FACP CCDS Ot Z72.0 TOBACCO USE 03/30/2016 GRACIELA MORAN DO Ot J44.9 CHRONIC OBSTRUCTIVE PULMONARY DISEASE, U 03/30/2016 GRACIELA MORAN DO Ot R06.02 SHORTNESS OF BREATH 03/30/2016 GRACIELA MORAN DO Ot Z72.0 TOBACCO USE 03/30/2016 NAOMY MEHTA MD R Ot 719.45 JOINT PAIN-PELVIS 03/30/2016 NAOMY MEHTA MD R Ot 780.60 FEVER, UNSPECIFIED 03/30/2016 NAOMY MEHAT MD R Ot 780.79 OTH MALAISE FATIGUE 03/30/2016 EFRAIN GARCIA FAC, ALI FACP CCDS Ot J43.8 OTHER EMPHYSEMA 03/30/2016 EFRAIN GARCIA FACC, ALI FACP CCDS Ot R06.02 SHORTNESS OF BREATH 03/30/2016 EFRAIN GARCIA FAC, ALI FACP CCDS Ot R07.89 OTHER CHEST PAIN 03/30/2016 EFRAIN GARCIA FACC, ALI FACP CCDS Ot Z72.0 TOBACCO USE 03/30/2016 EFRAIN GARCIA FACC, ALI FACP CCDS Ot J43.8 OTHER EMPHYSEMA 03/30/2016 EFRAIN GARCIA FAC, ALI FACP CCDS Ot R06.02 SHORTNESS OF BREATH 03/30/2016 EFRAIN GARCIA FAC, ALI FACP CCDS Ot R07.89 OTHER CHEST PAIN 03/30/2016 EFRAIN GARCIA [facility], ALI FACP CCDS Ot Z72.0 TOBACCO USE 03/30/2016 GRACIELA MORAN DO Ot J44.9 CHRONIC OBSTRUCTIVE PULMONARY DISEASE, U 03/30/2016 GRACIELA MORAN DO Ot R06.02 SHORTNESS OF BREATH 03/30/2016 GRACIELA MORAN DO Ot Z72.0 TOBACCO USE 03/31/2016 NAOMY MEHTA MD R Ot J44.9 CHRONIC OBSTRUCTIVE PULMONARY DISEASE, U 03/31/2016 NAOMY MEHTA MD R Ot K21.9 GASTRO-ESOPHAGEAL REFLUX DISEASE WITHOUT 03/31/2016 NAOMY MEHTA MD R Ot R07.9 CHEST PAIN, UNSPECIFIED 03/31/2016 NAOMY MEHTA MD R Ot R10.11 RIGHT UPPER QUADRANT PAIN 03/31/2016 NAOMY MEHTA MD R Ot R11.2 NAUSEA WITH VOMITING, UNSPECIFIED 03/31/2016 JANINE GARCIA, NAOMY R Ot Z87.891 PERSONAL HISTORY OF NICOTINE DEPENDENCE 04/30/2016 YADIEL GARCIA, MELCHOR Saldivar Ot R10.13 EPIGASTRIC PAIN 04/30/2016 YADIEL GARCIA, MELCHOR Saldivar Ot R19.7 DIARRHEA, UNSPECIFIED 04/30/2016 MELCHOR COTTO MD Ot Z01.818 ENCOUNTER FOR OTHER PREPROCEDURAL EXAMIN 04/30/2016 YADIEL GARCIA, MELCHOR Saldivar Ot R10.13 EPIGASTRIC PAIN 04/30/2016 YADIEL GARCIA, MELCHOR Saldivar Ot R19.7 DIARRHEA, UNSPECIFIED 04/30/2016 MELCHOR COTTO MD Ot Z01.818 ENCOUNTER FOR OTHER PREPROCEDURAL EXAMIN 05/03/2016 MELCHOR COTTO MD Ot K22.2 ESOPHAGEAL OBSTRUCTION 05/03/2016 MELCHOR COTTO MD Ot K64.4 RESIDUAL HEMORRHOIDAL SKIN TAGS 05/03/2016 YADIEL GARCIA, MELCHOR Saldivar Ot R19.7 DIARRHEA, UNSPECIFIED 05/04/2016 MELCHOR COTTO MD Ot K22.2 ESOPHAGEAL OBSTRUCTION 05/04/2016 MELCHOR COTTO MD Ot K64.4 RESIDUAL HEMORRHOIDAL SKIN TAGS 05/04/2016 MELCHOR COTTO MD Ot R19.7 DIARRHEA, UNSPECIFIED Procedures Results Test Result Range Complete blood count (CBC) with automated white blood cell (WBC) differential - 03/30/16 11:55 Blood leukocytes automated count (number/volume) 7.4 10*3/ uL 4.3-11.0 Blood erythrocytes automated count (number/volume) 4.57 10*6 /uL 4.35-5.85 Venous blood hemoglobin measurement (mass/volume) 14.5 g/dL 11.5-16.0 Blood hematocrit (volume fraction) 44 % 35-52 Automated erythrocyte mean corpuscular volume 96 [foz_us] 80-99 Automated erythrocyte mean corpuscular hemoglobin (mass per erythrocyte) 32 pg 25-34 Automated erythrocyte mean corpuscular hemoglobin concentration measurement ( mass/volume) 33 g/dL 32-36 Automated erythrocyte distribution width ratio 12.7 % 10.0-14.5 Automated blood platelet count (count/volume) 361 10*3/uL 130-400 Automated blood platelet mean volume measurement 9.2 [foz_us ] 7.4-10.4 Automated blood neutrophils/100 leukocytes 51 % 42-75 Automated blood lymphocytes/100 leukocytes 38 % 12-44 Blood monocytes/100 leukocytes 9 % 0-12 Automated blood eosinophils/100 leukocytes 2 % 0-10 Automated blood basophils/100 leukocytes 1 % 0-10 Blood neutrophils automated count (number/volume) 3.8 10*3 1.8-7.8 Blood lymphocytes automated count (number/volume) 2.8 10*3 1.0-4.0 Blood monocytes automated count (number/volume) 0.6 10*3 0.0-1.0 Automated eosinophil count 0.1 10*3/uL 0.0-0.3 Automated blood basophil count (count/volume) 0.1 10*3/uL 0.0-0.1 PT panel in platelet poor plasma by coagulation assay - 03/30/16 11:55 Prothrombin time (PT) in platelet poor plasma by coagulation assay 12.7 s 12.2-14.7 INR in platelet poor plasma or blood by coagulation assay 1.0 0.8-1.4 Activated partial thromboplastin time (aPTT) in platelet poor plasma bycoagulation assay - 03/30/16 11:55 Activated partial thromboplastin time (aPTT) in platelet poor plasma bycoagulation assay 29 s 24-35 Serum or plasma lithium measurement (moles/volume) - 03/30/16 11:55 BNP level 14.7 pg/mL <100.0 Comprehensive metabolic panel - 03/30/16 12:43 Serum or plasma sodium measurement (moles/volume) 138 mmol/ L 135-145 Serum or plasma potassium measurement (moles/volume) 4.3 mmol/L 3.6-5.0 Serum or plasma chloride measurement (moles/volume) 104 mmol /L 98-107 Carbon dioxide 23 mmol/L 21-32 Serum or plasma anion gap determination (moles/volume) 11 mmol/L 5-14 Serum or plasma urea nitrogen measurement (mass/volume) 12 mg/dL 7-18 Serum or plasma creatinine measurement (mass/volume) 0.74 mg /dL 0.60-1.30 Serum or plasma urea nitrogen/creatinine mass ratio 16 NRG Serum or plasma creatinine measurement with calculation of estimated glomerular filtration rate > NRG Serum or plasma glucose measurement (mass/volume) 121 mg/dL 70-105 Serum or plasma calcium measurement (mass/volume) 9.3 mg/dL 8.5-10.1 Serum or plasma total bilirubin measurement (mass/volume) 0.2 mg/dL 0.1-1.0 Serum or plasma alkaline phosphatase measurement (enzymatic activity/volume) 62 U/L 40-136 Serum or plasma aspartate aminotransferase measurement (enzymatic activity/ volume) 16 U/L 5-34 Serum or plasma alanine aminotransferase measurement (enzymatic activity/volume ) 17 U/L 0-55 Serum or plasma protein measurement (mass/volume) 7.0 g/dL 6.4-8.2 Serum or plasma albumin measurement (mass/volume) 4.1 g/dL 3.2-4.5 Magnesium - 03/30/16 12:43 Magnesium 2.0 mg/dL 1.8-2.4 Serum or plasma creatine kinase measurement (enzymatic activity/volume) - 03/30 12:43 Serum or plasma creatine kinase measurement (enzymatic activity/volume) 81 U/L 29-168 Serum or plasma creatine kinase MB measurement (enzymatic activity/volume) - 12:43 Serum or plasma creatine kinase MB measurement (enzymatic activity/volume) 1.9 ng/mL <6.6 Serum or plasma troponin i.cardiac measurement (mass/volume) - 03/30/16 12:43 Serum or plasma troponin i.cardiac measurement (mass/volume) < ng/mL <0.30 Serum or plasma amylase measurement (enzymatic activity/volume) - 03/30/16 12: 43 Serum or plasma amylase measurement (enzymatic activity/volume) 22 U/L 25-125 Lipase - 03/30/16 12:43 Lipase 19 U/L 8-78 Serum or plasma troponin i.cardiac measurement (mass/volume) - 03/30/16 18:52 Serum or plasma troponin i.cardiac measurement (mass/volume) < ng/mL <0.30 Complete blood count (CBC) with automated white blood cell (WBC) differential - 03/31/16 03:49 Blood leukocytes automated count (number/volume) 6.9 10*3/ uL 4.3-11.0 Blood erythrocytes automated count (number/volume) 4.02 10*6 /uL 4.35-5.85 Venous blood hemoglobin measurement (mass/volume) 13.0 g/dL 11.5-16.0 Blood hematocrit (volume fraction) 40 % 35-52 Automated erythrocyte mean corpuscular volume 99 [foz_us] 80-99 Automated erythrocyte mean corpuscular hemoglobin (mass per erythrocyte) 32 pg 25-34 Automated erythrocyte mean corpuscular hemoglobin concentration measurement ( mass/volume) 33 g/dL 32-36 Automated erythrocyte distribution width ratio 12.5 % 10.0-14.5 Automated blood platelet count (count/volume) 317 10*3/uL 130-400 Automated blood platelet mean volume measurement 9.0 [foz_us ] 7.4-10.4 Automated blood neutrophils/100 leukocytes 43 % 42-75 Automated blood lymphocytes/100 leukocytes 44 % 12-44 Blood monocytes/100 leukocytes 9 % 0-12 Automated blood eosinophils/100 leukocytes 4 % 0-10 Automated blood basophils/100 leukocytes 1 % 0-10 Blood neutrophils automated count (number/volume) 3.0 10*3 1.8-7.8 Blood lymphocytes automated count (number/volume) 3.0 10*3 1.0-4.0 Blood monocytes automated count (number/volume) 0.6 10*3 0.0-1.0 Automated eosinophil count 0.3 10*3/uL 0.0-0.3 Automated blood basophil count (count/volume) 0.0 10*3/uL 0.0-0.1 Comprehensive metabolic panel - 03/31/16 03:49 Serum or plasma sodium measurement (moles/volume) 139 mmol/ L 135-145 Serum or plasma potassium measurement (moles/volume) 4.3 mmol/L 3.6-5.0 Serum or plasma chloride measurement (moles/volume) 106 mmol /L 98-107 Carbon dioxide 22 mmol/L 21-32 Serum or plasma anion gap determination (moles/volume) 11 mmol/L 5-14 Serum or plasma urea nitrogen measurement (mass/volume) 11 mg/dL 7-18 Serum or plasma creatinine measurement (mass/volume) 0.79 mg /dL 0.60-1.30 Serum or plasma urea nitrogen/creatinine mass ratio 14 NRG Serum or plasma creatinine measurement with calculation of estimated glomerular filtration rate > NRG Serum or plasma glucose measurement (mass/volume) 98 mg/dL 70-105 Serum or plasma calcium measurement (mass/volume) 8.7 mg/dL 8.5-10.1 Serum or plasma total bilirubin measurement (mass/volume) 0.3 mg/dL 0.1-1.0 Serum or plasma alkaline phosphatase measurement (enzymatic activity/volume) 57 U/L 40-136 Serum or plasma aspartate aminotransferase measurement (enzymatic activity/ volume) 16 U/L 5-34 Serum or plasma alanine aminotransferase measurement (enzymatic activity/volume ) 13 U/L 0-55 Serum or plasma protein measurement (mass/volume) 6.3 g/dL 6.4-8.2 Serum or plasma albumin measurement (mass/volume) 3.8 g/dL 3.2-4.5 Lipid 1996 panel - 03/31/16 03:49 Serum or plasma triglyceride measurement (mass/volume) 141 mg/dL <150 Serum or plasma cholesterol measurement (mass/volume) 205 mg /dL < 200 Serum or plasma cholesterol in HDL measurement (mass/volume) 47 mg/dL 40-60 Cholesterol in LDL [mass/volume] in serum or plasma by direct assay 139 mg/dL 1-129 Serum or plasma cholesterol in VLDL measurement (mass/volume) 28 mg/dL 5-40 Myoglobin, serum - 03/31/16 03:49 Myoglobin, serum 51.6 ng/mL 10.0-92.0 Lipid 1995 panel - 03/31/16 03:49 Serum or plasma triglyceride measurement (mass/volume) 141 mg/dL <150 Serum or plasma cholesterol measurement (mass/volume) 205 mg /dL < 200 Serum or plasma cholesterol in HDL measurement (mass/volume) 47 mg/dL 40-60 Cholesterol in LDL [mass/volume] in serum or plasma by direct assay 139 mg/dL 1-129 Serum or plasma cholesterol in VLDL measurement (mass/volume) 28 mg/dL 5-40 Encounters ACCT No. Visit Date/Time Discharge Status Pt. Type Provider Facility Loc./Unit Complaint [id number] 05/03/2016 08:54:00 2016 12:05:00 DIS Outpatient MELCHOR COTTO MD [facility] ENDO DIARRHEA, UPPER GASTRIC PAIN [id number] 04/30/2016 14:20:00 2016 14:35:00 DIS Outpatient MELCHOR COTTO MD [facility] PREOP COLONOSCOPY/EGD [id number] 03/30/2016 13:25:00 2016 17:40:00 DIS Outpatient NAOMY MEHTA MD [facility] CSD CHEST PAIN [id number] 11/15/2012 14:52:00 2012 23:59:59 CLS Outpatient NAOMY MEHTA MD [facility] RAD PAIN IN RT HIP AND LEG, IRREGULAR WEIGHT LOSS [id number] 05/21/2015 14:01:00 ACT Outpatient GRACIELA MORAN DO [facility] RT COPD, SHORTNESS OF BREATH, TOBACCO USER [id number] 03/20/2015 07:19:00 ACT Outpatient EFRAIN GARCIA FACC, CESAR LARA CCDS [facility] CARD CHEST DISCOMFORT,SOB [id number] 03/17/2015 13:13:00 ACT Outpatient EFRAIN SOTELOC, CESAR LARA CCDS [facility] CARD CHEST DISCOMFORT,SOB [id number] 03/11/2015 12:37:00 Document Registration [id number] 06/01/2011 13:55:00 Document Registration [id number] 12/04/2009 10:59:00 Document Registration
== END 2016-05-03 12:05 | disposition home or self-care (01) ==
LOC: DELPENDDIS → ENDO 08:54
PROVIDERS: ATTEND Surgery
DX: K22.2 Esophageal obstruction (principal); R19.7 Diarrhea, unspecified; K64.4 Residual hemorrhoidal skin tags
CPT/HCPCS: 74176

== ENCOUNTER → 2016-08-31 | Outpatient (CLI) | payer MEDICARE ==
--- NOTE | 2016-08-31 14:17 | Diagnostic Imaging Report ---
Examination: Segmental lower extremity pressure assessment and ankle brachial index measurement. Post volume recording waveforms are also obtained in the lower extremities. Indication: Peripheral arterial disease Findings: Systolic pressure in the right Upper extremity is 139, and the left Upper extremity is 146 mmHg. RIGHT Lower extremity systolic pressures are: In the mid thigh 136 , in the upper calf 133, and at the ankle 126 PT, and 132 DP. LEFT Lower extremity systolic pressures are: In the mid thigh 132 , in the upper calf 158, and at the ankle 115 PT, and 157 DP. CRYSTAL on the right is 0.9, and on the left is 1.1. Pulse volume recordings waveforms demonstrate mild dampening . Impression: Findings suggestive of mild peripheral vascular disease. Dictated by: Dictated on workstation # [id number]
== END ==
LOC: RAD 11:33
PROVIDERS: ATTEND Nurse Practitioner Family
DX: I73.9 Peripheral vascular disease, unspecified (principal); I35.8 Other nonrheumatic aortic valve disorders; J43.8 Other emphysema
CPT/HCPCS: 93923

== ENCOUNTER → 2017-08-09 | Outpatient (CLI) | payer MEDICARE ==
--- NOTE | 2017-08-09 16:55 | Diagnostic Imaging Report ---
EXAMINATION: PA and lateral chest at 04:13 p.m. INDICATION: Cough. FINDINGS: The heart size is within normal limits and stable when compared to 03/30/2016. The chronic pulmonary changes evident on the prior study are again visualized and no different. There is no sign of failure, pneumonia, or of a pleural effusion to suggest an acute abnormality. The mediastinum is not widened. The osseous structures are intact. IMPRESSION: There are chronic pulmonary changes evident, but there is no sign of an acute cardiopulmonary abnormality. Dictated by: Dictated on workstation # [id number]
== END ==
LOC: RAD 15:14
PROVIDERS: ATTEND Family Medicine
DX: J43.1 Panlobular emphysema (principal)
CPT/HCPCS: 71046

== ENCOUNTER → 2017-08-11 | Outpatient (CLI) | payer MEDICARE ==
[2017-08-11 09:14] LABS: BASOPHILS # (AUTO) 0.1 10^3/uL (0.0-0.1); BASOPHILS % (AUTO) 1 % (0-10); EOSINOPHILS # (AUTO) 0.2 10^3/uL (0.0-0.3); EOSINOPHILS % (AUTO) 3 % (0-10); HEMATOCRIT 44 % (35-52); HEMOGLOBIN 14.3 G/DL (11.5-16.0); LYMPHOCYTES # (AUTO) 2.2 X 10^3 (1.0-4.0); LYMPHOCYTES % (AUTO) 33 % (12-44); MEAN CORPUSCULAR HEMOGLOBIN 31 PG (25-34); MEAN CORPUSCULAR HGB CONC 33 G/DL (32-36); MEAN CORPUSCULAR VOLUME 95 FL (80-99); MEAN PLATELET VOLUME 9.5 FL (7.4-10.4); MONOCYTES # (AUTO) 0.4 X 10^3 (0.0-1.0); MONOCYTES % (AUTO) 7 % (0-12); NEUTROPHILS # (AUTO) 3.8 X 10^3 (1.8-7.8); NEUTROPHILS % (AUTO) 57 % (42-75); PLATELET COUNT 328 10^3/uL (130-400); RED CELL DISTRIBUTION WIDTH 12.8 % (10.0-14.5); WHITE BLOOD COUNT 6.7 10^3/uL (4.3-11.0)
[2017-08-11 09:34] LABS: ALANINE AMINOTRANSFERASE 13 U/L (0-55); ALBUMIN 4.3 GM/DL (3.2-4.5); ALKALINE PHOSPHATASE 60 U/L (40-136); BILIRUBIN,TOTAL 0.3 MG/DL (0.1-1.0); BUN/CREATININE RATIO 14; CALCIUM 9.5 MG/DL (8.5-10.1); CARBON DIOXIDE 27 MMOL/L (21-32); CHLORIDE 109 MMOL/L (98-107); CHOLESTEROL 239 MG/DL (< 200); CREATININE SERUM 0.78 MG/DL (0.60-1.30); GFR ESTIMATED > 60; GLUCOSE 100 MG/DL (70-105); HDL CHOLESTEROL 53 MG/DL (40-60); POTASSIUM 4.1 MMOL/L (3.6-5.0); SODIUM 143 MMOL/L (135-145); TOTAL PROTEIN 7.1 GM/DL (6.4-8.2); TRIGLYCERIDES 119 MG/DL (<150); VLDL CHOLESTEROL 24 MG/DL (5-40)
== END ==
LOC: LAB 08:46
PROVIDERS: ATTEND Family Medicine
DX: I10 Essential (primary) hypertension (principal); E78.2 Mixed hyperlipidemia
CPT/HCPCS: 36415; 80053; 80061; 84443; 85025

== ENCOUNTER → 2017-08-17 | Outpatient (CLI) | payer MEDICARE ==
--- NOTE | 2017-08-17 14:17 | Diagnostic Imaging Report ---
INDICATION: Right breast pain. COMPARISON: 10/11/2007. TECHNIQUE: 2D and 3D bilateral diagnostic mammography was performed with CAD. FINDINGS: Scattered fibroglandular densities are identified bilaterally. There has been a decrease in the overall breast density since the prior examination 10 years earlier. There are benign calcifications bilaterally. No mass or malignant-appearing microcalcifications are seen. The axillae are unremarkable. IMPRESSION: No mammographic features suspicious for malignancy are identified. Even so, sonographic interrogation of the right breast at the area of pain is recommended for further evaluation. ACR BI-RADS Category 0: Incomplete. (Needs additional imaging evaluation). Result letter will be mailed to the patient. Note: At least 10% of breast cancer is not imaged by mammography. Dictated by: Dictated on workstation # [id number]
--- NOTE | 2017-08-17 14:19 | Diagnostic Imaging Report ---
INDICATION: Right breast pain. COMPARISON: Correlation is made with the diagnostic mammogram from earlier this same day. FINDINGS: Interrogation of all four quadrants and the retroareolar region of the right breast was performed. No sonographic abnormality is seen. No solid or cystic mass is detected. IMPRESSION: No sonographic abnormality is detected. Clinical followup is recommended. ACR BI-RADS Category 1: Negative. Dictated by: Dictated on workstation # [id number]
== END ==
LOC: RAD 12:11
PROVIDERS: ATTEND Family Medicine
DX: R92.2 Inconclusive mammogram (principal)
CPT/HCPCS: 77066

== ENCOUNTER → 2018-08-17 | Outpatient (CLI) | payer MEDICARE ==
--- NOTE | 2018-08-17 14:15 | Diagnostic Imaging Report ---
EXAMINATION: CT chest without contrast for lung cancer screening. HISTORY: 17.5 pack year history of smoking. TECHNIQUE: Computed axial tomographic images of the chest were performed for lung cancer screening purposes. Coronal MIPS were obtained. COMPARISON: No comparison is available. FINDINGS: There is moderate to severe emphysema. There is some mild peripheral areas of atelectasis. Scarring is present in the apices. No edema or pneumonia. No suspicious nodules. The heart size is normal. There are severe coronary artery calcifications. There is a small hiatal hernia. No axillary, supraclavicular, or mediastinal lymphadenopathy. There is a small right-sided Bochdalek hernia containing fat. No suspicious osseous lesions. IMPRESSION: 1. Severe coronary artery calcification. 2. No suspicious pulmonary nodules. Lung-RADS category: 1. MODIFIER: S. Dictated by: Dictated on workstation # [id number]
== END ==
LOC: RAD 12:27
PROVIDERS: ATTEND Nurse Practitioner Family
DX: Z12.2 Encounter for screening for malignant neoplasm of respiratory organs (principal); I25.10 Atherosclerotic heart disease of native coronary artery without angina pectoris; Z87.891 Personal history of nicotine dependence

== ENCOUNTER → 2019-08-20 | Outpatient (CLI) | payer MEDICARE ==
[~2019-08-20] MED LIST changes: -OMEP20CA12 PO; +OMEP20CA18 PO
--- NOTE | 2019-08-20 13:55 | Diagnostic Imaging Report ---
CT Lung Screening INDICATION: History of tobacco use with a 33 pack year history. Quit smoking 4 years ago. TECHNIQUE: Noncontrast, low-dose CT imaging performed according to lung cancer screening protocol. Auto Exposure Controls were utilized during the CT exam to meet ALARA standards for radiation dose reduction. COMPARISON: Lung [id number]/11/2019 FINDINGS: HEART/MEDIASTINUM: Heart size is normal. There is moderate scattered coronary artery calcification. No pericardial effusion. Mild wall calcification, otherwise normal in contour. No suggestion for pathologically enlarged mediastinal lymph nodes on limited, noncontrast imaging. Calcified right infrahilar lymph node. Small to moderate esophageal hernia. LUNGS/MEASURED PULMONARY NODULES: Rather advanced emphysematous lung disease. Biapical pleural scarring is again demonstrated. No infiltrate. Calcified granuloma in the deep lateral right costophrenic angle. OTHER: Small right-sided Bochdalek hernia containing fat. Osseous structures demonstrate no acute findings. Slight accentuated thoracic kyphosis. IMPRESSION: 1. No concerning pulmonary mass at screening assessment. Advanced emphysematous lung disease. 2. Scattered coronary artery calcification. LUNG-RADS CATEGORY: 1-S LUNG SCREENING MANAGEMENT/RECOMMENDATIONS: Continued annual screening with low dose CT in 12 months. Notes: Lung rads category 1 or 2 does not mean that an individual does not have lung cancer or other active disease process, but rather nothing is identified to meet criteria for current lung pathology. Therefore, continued annual lung cancer screening should be performed. Please note that this is a low dose CT examination, intended for lung cancer screening of high risk patients. As a technical result, the examination is limited in diagnostic quality compared to a conventional CT examination of the chest. Dictated by: Dictated on workstation # [id number]
== END ==
LOC: RAD 11:53
PROVIDERS: ATTEND Nurse Practitioner Family
DX: Z12.2 Encounter for screening for malignant neoplasm of respiratory organs (principal); J43.9 Emphysema, unspecified; I25.10 Atherosclerotic heart disease of native coronary artery without angina pectoris; Z87.891 Personal history of nicotine dependence

== ENCOUNTER → 2020-08-22 | Outpatient (CLI) | payer MEDICARE ==
[~2020-08-22] MED LIST changes: +RT-ALBUTEROL SULF 2.5 MG/3 ML PRE-MIX VIAL INH ONE
--- NOTE | 2020-08-22 16:28 | Diagnostic Imaging Report ---
EXAMINATION: CT chest without contrast (lung screening). TECHNIQUE: Multiple contiguous axial images were obtained through the chest without the use of intravenous contrast according to lung cancer screening protocol. All CT scans use one or more of the following dose optimizing techniques: automated exposure control, MA and/or KvP adjustment based on patient size and exam type or iterative reconstruction. HISTORY: Greater than 30 pack year history of smoking. COMPARISON: 08/20/2019 FINDINGS: There is no edema or pneumonia. No pleural effusion. No pneumothorax. No suspicious nodules. Lungs are severely emphysematous. There is calcified granuloma in the right lower lobe. There is scarring in the apices. There is no axillary or supraclavicular lymphadenopathy. There is no mediastinal lymphadenopathy. Heart size is normal. There are moderate coronary artery calcifications. No pericardial effusion. Aorta is normal in caliber. There is a small hiatal hernia. Limited views of the upper abdomen are unremarkable. There are no suspicious osseous lesions. IMPRESSION: 1. No suspicious pulmonary nodules. LUNG-RADS CATEGORY: 1 MODIFIER: None. Dictated by: Dictated on workstation # [id number]
== END ==
LOC: RT 13:00
PROVIDERS: ATTEND Nurse Practitioner Family
DX: Z12.2 Encounter for screening for malignant neoplasm of respiratory organs (principal); J44.9 Chronic obstructive pulmonary disease, unspecified; F17.210 Nicotine dependence, cigarettes, uncomplicated
CPT/HCPCS: 71271; 94060; 94726; 94729

== ENCOUNTER 2020-12-01 10:38 | Outpatient (CLI) | payer MEDICARE ==
[~2020-12-01 10:38] MED LIST changes: -RT-ALBUTEROL SULF 2.5 MG/3 ML PRE-MIX VIAL INH ONE
== END 2020-12-01 10:55 ==
LOC: SLEEP 10:38
PROVIDERS: ATTEND Nurse Practitioner Family
DX: G47.30 Sleep apnea, unspecified (principal); G47.50 Parasomnia, unspecified; G47.10 Hypersomnia, unspecified; J43.9 Emphysema, unspecified; J30.9 Allergic rhinitis, unspecified; Z86.16 Personal history of COVID-19; Z72.0 Tobacco use
CPT/HCPCS: G0399

== ENCOUNTER → 2021-01-12 | Outpatient (CLI) | payer MEDICARE ==
[~2021-01-12] MED LIST changes: +DICY20TA PO; -DICY20TA10 PO
== END ==
LOC: LABNPT 07:30
PROVIDERS: ATTEND Otolaryngology Otolaryngology/Facial Plastic Surgery
DX: Z01.812 Encounter for preprocedural laboratory examination (principal); G47.33 Obstructive sleep apnea (adult) (pediatric); Z20.822 Contact with and (suspected) exposure to COVID-19
CPT/HCPCS: 87635

== ENCOUNTER 2021-01-14 19:27 | Outpatient (CLI) | payer MEDICARE | END 2021-01-15 06:52 | disposition home or self-care (01) | LOC: SLEEP 19:27 | PROVIDERS: ATTEND Otolaryngology Otolaryngology/Facial Plastic Surgery | DX: G47.33 Obstructive sleep apnea (adult) (pediatric) (principal) | CPT/HCPCS: 87635; 95811 ==

== ENCOUNTER 2021-04-21 15:44 | Emergency (ER) | payer MEDICARE ==
[~2021-04-21] VITALS: Ht 149.8 cm; Wt 50.3 kg
[2021-04-21 16:42] LABS: ALBUMIN 4.2 GM/DL (3.2-4.5); BASOPHILS % (AUTO) 0 % (0-10); EOSINOPHILS % (AUTO) 0 % (0-10); HEMATOCRIT 45 % (35-52); HEMOGLOBIN 14.6 g/dL (11.5-16.0); LYMPHOCYTES % (AUTO) 20 % (12-44); MEAN CORPUSCULAR HEMOGLOBIN 30 pg (25-34); MEAN CORPUSCULAR HGB CONC 32 g/dL (32-36); MEAN CORPUSCULAR VOLUME 94 fL (80-99); MEAN PLATELET VOLUME 9.5 fL (9.0-12.2); MONOCYTES # (AUTO) 0.5 10^3/uL (0.0-1.0); MONOCYTES % (AUTO) 6 % (0-12); NEUTROPHILS % (AUTO) 73 % (42-75); PLATELET COUNT 387 10^3/uL (130-400); WHITE BLOOD COUNT 9.6 10^3/uL (4.3-11.0)
[2021-04-21 16:43] LABS: CHLORIDE 103 MMOL/L (98-107); POTASSIUM 3.4 MMOL/L (3.6-5.0); SODIUM 138 MMOL/L (135-145)
[2021-04-21 16:44] LABS: CALCIUM 9.5 MG/DL (8.5-10.1)
[2021-04-21 16:45] LABS: GLUCOSE 160 MG/DL (70-105); TOTAL PROTEIN 7.4 GM/DL (6.4-8.2)
[2021-04-21] MEDS ORDERED: ONDANSETRON 4 MG (ZOFRAN) ORAL DISSOLVE TAB PO ONE (16:45)
[2021-04-21 16:46] LABS: CARBON DIOXIDE 21 MMOL/L (21-32)
[2021-04-21] MEDS ORDERED: ONDANSETRON 4 MG/2 ML (SDV) Z0FRAN ONE (16:46)
[2021-04-21 16:47] LABS: BILIRUBIN,TOTAL 0.3 MG/DL (0.1-1.0)
[2021-04-21 16:48] LABS: ALKALINE PHOSPHATASE 65 U/L (40-136); CREATININE SERUM 0.78 MG/DL (0.60-1.30); GFR ESTIMATED 82
[2021-04-21 16:49] LABS: BUN/CREATININE RATIO 18
[2021-04-21 16:51] LABS: ALANINE AMINOTRANSFERASE 13 U/L (0-55)
--- NOTE | 2021-04-21 16:56 | Diagnostic Imaging Report ---
INDICATION: Shortness of air. COMPARISON: 08/09/2017. TECHNIQUE: Single radiograph of the chest dated 04/21/2021. FINDINGS: The cardiac silhouette is within normal limits in size. No significant pulmonary vascular congestion. Background emphysematous changes are again noted with associated pulmonary hyperinflation. New patchy opacities are identified within the bilateral lung bases, right greater than left. No significant pleural effusion. No pneumothorax. No acute osseous abnormality. IMPRESSION: New right greater than left bibasilar pneumonitis and/or atelectasis superimposed upon background chronic obstructive pulmonary disease and emphysematous changes. Recommend radiographic follow-up in 10-14 days to ensure improvement of these new opacities. Dictated by: Dictated on workstation # [id number]
[2021-04-21] MEDS ORDERED: ONDANSETRON 4 MG/2 ML (SDV) Z0FRAN IVP ONE (17:30)
[2021-04-21] MEDS ORDERED: methylPREDNISolone 125 MG (Solu-MEDROL) VIAL IVP ONE (17:30)
[2021-04-21] MEDS ORDERED: RT-ALBUTEROL HFA 8.5 GM INHALER IH SCH (18:00)
[2021-04-21 18:20] LABS: ABG BASE EXCESS 0.5 MMOL/L (-2.5-2.5); ABG OXYGEN SATURATION 92 % (94-100); ABG PCO2 41 MMHG (35-45); ABG PH 7.39 (7.37-7.43); ABG PO2 61 MMHG (79-93); ABG TCO2 26.3 MMOL/L (21.0-31.0); ALLENS TEST POSITIVE
--- NOTE | 2021-04-21 18:20 | ED Respiratory ---
General Chief Complaint: Respiratory Problems Stated Complaint: SOB, LOW O2 Nursing Triage Note: PT AMB TO RM 10 WITH COMPLAINT OF SOA, CHEST TIGHTNESS. WAS SENT OUT HERE BY [facility] FOR FURTHER EVALUATION. STATES STARTED ON THE 6TH WITH SYMPTOMS. TESTED NEGATIVE FOR FLU, COVID, AND STREP AT [facility]. Source: patient Exam Limitations: no limitations History of Present Illness Date Seen by Provider: Apr 21, 2021 Time Seen by Provider: 16:20 Initial Comments This is a 70-year-old female who presented to the ER via POV with her daughter for complaints of increasing shortness of air and chest tightness. Allergies and Home Medications Allergies Coded Allergies: aspirin (Unverified Allergy, Intermediate, SWELLING AROUND MOUTH, VOMITING, 06/02/11) codeine (Verified Allergy, Intermediate, VOMITING, 06/01/11) ketorolac (Verified Adverse Reaction, Unknown, 03/30/16) Patient Home Medication List Acetaminophen (Acetaminophen) 500 Mg Tablet, 1,500 MG PO BID PRN for PAIN, (Reported) Entered as Reported by: YOVANY CORDOVA on 03/30/16 1638 Budesonide/Formoterol Fumarate (Symbicort 160-4.5 Mcg Inhaler) 10.2 Gm Hfa.aer.ad, 2 PUFF IH BID, (Reported) Entered as Reported by: MINDY SORENSON on 03/30/16 1206 Omeprazole (Omeprazole) 20 Mg Capsule.dr, 20 MG PO DAILY Prescribed by: NELSON GAMEZ on 03/31/16 1316 Tiotropium [place] (Spiriva) 1 Inh Aerp, 2 PUFF IH DAILY, (Reported) Entered as Reported by: MINDY SORENSON on 03/30/16 1206 Past Otdivzc-Ttgcie-Csnyej Hx Patient Social History Tobacco Use?: No Smoking Status: Former Smoker Use of E-Cig and/or Vaping dev: No Substance use?: No Alcohol Use?: No Pt feels they are or have been: No Immunizations Up To Date Tetanus Booster (TDap): Unknown Influenza Vaccine Up-to-Date: No; Not Current First/Initial COVID19 Vaccinat: NO Second COVID19 Vaccination Bruce: NO Seasonal Allergies Seasonal Allergies: Yes Past Medical History Surgeries: Yes (CATARACTS BILAT, SHUNT PLACED ON SPINAL CORD; HYST-OVARIES INTACT) Section, Eye Surgery, Hysterectomy Respiratory: Yes (USES 2 L 02 NC AT NIGHT) Sleep Apnea, COPD Currently Using CPAP: No Currently Using BIPAP: No Cardiac: No Neurological: No Seizure Disorder Reproductive Disorders: No Female Reproductive Disorders: Denies 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 6.0oz. 53.113278ty; 22.00 BMI Method:Stated Progress/Results/Core Measures Suspected Sepsis SIRS Temperature: Pulse: 122 Respiratory Rate: 20 Laboratory Tests 04/21/21 16:18: White Blood Count 9.6 Blood Pressure 143 /98 Mean: 113 Laboratory Tests 04/21/21 16:18: Creatinine 0.78, Platelet Count 387, Total Bilirubin 0.3 Results/Orders Lab Results Laboratory Tests Test 04/21/21 16:18 04/21/21 17:57 Range/Units White Blood Count 9.6 4.3-11.0 10^3/uL Red Blood Count 4.83 3.80-5.11 10^6/uL Hemoglobin 14.6 11.5-16.0 g/dL Hematocrit 45 35-52 % Mean Corpuscular Volume 94 80-99 fL Mean Corpuscular Hemoglobin 30 25-34 pg Mean Corpuscular Hemoglobin Concent 32 32-36 g/dL Red Cell Distribution Width 12.3 10.0-14.5 % Platelet Count 387 130-400 10^3/uL Mean Platelet Volume 9.5 9.0-12.2 fL Immature Granulocyte % (Auto) 0 % Neutrophils (%) (Auto) 73 42-75 % Lymphocytes (%) (Auto) 20 12-44 % Monocytes (%) (Auto) 6 0-12 % Eosinophils (%) (Auto) 0 0-10 % Basophils (%) (Auto) 0 0-10 % Neutrophils # (Auto) 7.0 1.8-7.8 10^3/uL Lymphocytes # (Auto) 2.0 1.0-4.0 10^3/uL Monocytes # (Auto) 0.5 0.0-1.0 10^3/uL Eosinophils # (Auto) 0.0 0.0-0.3 10^3/uL Basophils # (Auto) 0.0 0.0-0.1 10^3/uL Immature Granulocyte # (Auto) 0.0 0.0-0.1 10^3/uL Sodium Level 138 135-145 MMOL/L Potassium Level 3.4 L 3.6-5.0 MMOL/L Chloride Level 103 98-107 MMOL/L Carbon Dioxide Level 21 21-32 MMOL/L Anion Gap 14 5-14 MMOL/L Blood Urea Nitrogen 14 7-18 MG/DL Creatinine 0.78 0.60-1.30 MG/DL Estimat Glomerular Filtration Rate 82 BUN/Creatinine Ratio 18 Glucose Level 160 H 70-105 MG/DL Calcium Level 9.5 8.5-10.1 MG/DL Corrected Calcium 9.3 8.5-10.1 MG/DL Total Bilirubin 0.3 0.1-1.0 MG/DL Aspartate Amino Transf (AST/SGOT) 18 5-34 U/L Alanine Aminotransferase (ALT/SGPT) 13 0-55 U/L Alkaline Phosphatase 65 40-136 U/L Troponin I < 0.028 <0.028 NG/ML Total Protein 7.4 6.4-8.2 GM/DL Albumin 4.2 3.2-4.5 GM/DL Influenza Type A (RT-PCR) Detected H Not Detecte Influenza Type B (RT-PCR) Not Detected Not Detecte SARS-CoV-2 RNA (RT-PCR) Not Detected Not Detecte Blood Gas Puncture Site RIGHT RADIAL Blood Gas Patient Temperature 36.3 Arterial Blood pH 7.39 7.37-7.43 Arterial Blood Partial Pressure CO2 41 35-45 MMHG Arterial Blood Partial Pressure O2 61 L 79-93 MMHG Arterial Blood HCO3 25 23-27 MMOL/L Arterial Blood Total CO2 26.3 21.0-31.0 MMOL/L Arterial Blood Oxygen Saturation 92 L 94-100 % Arterial Blood Base Excess 0.5 -2.5-2.5 MMOL/L Adam Test POSITIVE Blood Gas Ventilator Setting NO Blood Gas Inspired Oxygen N/A My Orders Orders - PEGGY ALONZO MANAGER PORT Cbc With Automated Diff (04/21/21 16:34) Comprehensive Metabolic Panel (04/21/21 16:34) Ekg Tracing (04/21/21 16:34) Troponin I Rolf (04/21/21 16:34) Chest 1 View, Ap/Pa Only (04/21/21 16:34) Ondansetron Oral Dissolve Tab (Zofran (04/21/21 16:45) Ondansetron Injection (Zofran Injectio (04/21/21 16:46) Arterial Blood Gas (04/21/21 17:21) Ondansetron Injection (Zofran Injectio (04/21/21 17:30) Methylprednisolone Sod Succ (Solu-Medrol (04/21/21 17:30) Albuterol Inhaler (Albuterol) (04/21/21 18:00) Medications Given in ED Current Medications Medications Dose Ordered Sig/Anne Route Start Time Stop Time Status Last Admin Dose Admin Methylprednisolone Sodium Succinate 125 mg ONCE ONCE IVP 04/21/21 17:30 04/21/21 17:31 DC 04/21/21 17:52 125 MG Ondansetron HCl 4 mg ONCE ONCE IVP 04/21/21 17:30 04/21/21 17:31 DC 04/21/21 16:46 4 MG Vital Signs/I&O 04/21/21 04/21/21 16:18 16:18 Pulse 122 Resp 20 B/P (MAP) 143/98 (113) Pulse Ox 91 O2 Delivery Room Air Room Air Capillary Refill : Less Than 3 Seconds Blood Pressure Mean: 113 Departure Impression Primary Impression: Influenza A Additional Impressions: Pneumonitis Chronic obstructive airway disease Disposition: HOME, SELF-CARE Condition: Improved Departure-Patient Inst. Decision time for Depature: 18:57 Referrals: NO,LOCAL PHYSICIAN (PCP/Family) Primary Care Physician Patient Instructions: Pneumonitis Add. Discharge Instructions: Plan: 1. Stop your Advair and start Symbicort twice a day as directed. 2. May use Zofran 4mg every 6 hours as needed for nausea. 3. Take Pepcid twice a day while taking steroids. 4. Take Prednisone daily as directed. Take with food to prevent with GI upset. 5. Continue your home Azithromycin. 6. Follow up with [facility] next week to repeat chest x-ray. 7. Return immediately to ER if you start having worsening shortness of breath, chest pain, low oxygen saturation below 90%, or any other new or concerning symptoms. All discharge instructions reviewed with patient and/or family. Voiced understanding. Scripts Ondansetron (Ondansetron Odt) 4 Mg Tab.rapdis 4 MG PO Q6H PRN for NAUSEA/VOMITING, #20 TAB 0 Refills Prov: PEGGY ALONZO MANAGER PORT 04/21/21 Prednisone (Prednisone) 20 Mg Tab 40 MG PO DAILY for 2 Days, #6 TAB 4 Refills Prov: PEGGY ALONZO MANAGER PORT 04/21/21 Budesonide/Formoterol Fumarate (Symbicort 160-4.5 Mcg Inhaler) 10.2 Gm Hfa.aer.ad 2 PUFF IH BID for 30 Days, #1 EA 1 Refill Prov: PEGGY ALONZO MANAGER PORT 04/21/21 PEGGY ALONZO MANAGER PORT Apr 21, 2021 18:20
[2021-04-21 18:21] LABS: PATIENT TEMP 36.3; VENTILATOR NO
[2021-04-21] MEDS ORDERED: BUDE10.2 IH (18:57)
[2021-04-21] MEDS ORDERED: PRD20T PO (18:57)
[2021-04-21] MEDS ORDERED: ONDA4TAB11 PO (18:57)
[2021-04-21 19:07] VITALS: BP 164/75
== END 2021-04-21 19:10 | disposition home or self-care (01) ==
LOC: EDUNIT# 15:44 → ER 15:47
DX: J10.1 Influenza due to other identified influenza virus with other respiratory manifestations (principal); J18.9 Pneumonia, unspecified organism; J44.9 Chronic obstructive pulmonary disease, unspecified; Z20.822 Contact with and (suspected) exposure to COVID-19; Z87.891 Personal history of nicotine dependence
CPT/HCPCS: 36415; 71045; 80053; 82805; 84484; 85025; 87636; 93005

== ENCOUNTER → 2021-08-21 | Outpatient (CLI) | payer MEDICARE ==
[~2021-08-21] VITALS: Ht 149 cm; Wt 53.0 kg
[~2021-08-21] MED LIST changes: +ONDA4TAB11 PO; +PRD20T PO; +REGADENOSON 0.4 MG/5 ML SYR (LEXISCAN) IV ONE
[2021-08-21] MEDS: CATHETER FLUSH 10 ML SYR IVP PRN ×2 (07:52→09:36)
[2021-08-21 09:33] VITALS: BP 172/71
--- NOTE | 2021-08-23 21:25 | STRESS TEST ---
DATE OF SERVICE: 08/21/2021 RESTING AND POST REGADENOSON TECHNETIUM-99M TETROFOSMIN SPECT CT IMAGING ORDERING PHYSICIAN: Dr. Tirado. CLINICAL DIAGNOSIS: Shortness of breath. Baseline images were carried out after injection of 10.98 mCi of technetium-99m Tetrofosmin. This was followed by 0.4 mg regadenoson and 30.3 mCi of technetium-99m Tetrofosmin for stress imaging. The electrocardiogram showed sinus rhythm with sinus arrhythmia. The electrocardiogram did not change significantly with the regadenoson infusion. The patient tolerated the procedure well. Review of images at rest and following stress does not indicate any significant perfusion defects consistent with myocardial ischemia or infarction. Gated images show normal regional wall motion and normal global left ventricular systolic function. Left ventricular ejection fraction is calculated to be 54%. CONCLUSIONS: 1. No evidence of any significant myocardial ischemia or infarction on this study. 2. Normal regional wall motion. 3. Normal global left ventricular systolic function with a calculated ejection fraction of 54%. Job ID: [id number] DocumentID: [id number] Dictated Date: 08/23/2021 15:37:02 Diplomatic Interpreter Date: 08/23/2021 21:23:54 Dictated By: CESAR TIRADO MD, MA, FACP, FACC,
== END ==
LOC: CARD 07:12
PROVIDERS: ATTEND Internal Medicine Cardiovascular Disease
DX: R06.09 Other forms of dyspnea (principal)
CPT/HCPCS: 78452; 93017; A9502

== ENCOUNTER → 2021-10-14 | Outpatient (CLI) | payer MEDICARE ==
[~2021-10-14] VITALS: Ht 149.9 cm; Wt 53.1 kg
[~2021-10-14] MED LIST changes: +ASPI-999 PO; +ATOR40TA70 PO; +FAMO20TA5 PO; +FLUT12AE4 IH; +FLUT16SP22 NS; +LORA-53 PO; +MONT-40 PO; -REGADENOSON 0.4 MG/5 ML SYR (LEXISCAN) IV ONE; +RT-ALBUINH IH
== END | disposition home or self-care (01) ==
LOC: PREOP 06:08
PROVIDERS: ATTEND Surgery
DX: Z01.818 Encounter for other preprocedural examination (principal)

== ENCOUNTER → 2021-10-21 | Outpatient (CLI) | payer MEDICARE | LOC: CARD 09:43 | PROVIDERS: ATTEND Internal Medicine Cardiovascular Disease | DX: R06.09 Other forms of dyspnea (principal) | CPT/HCPCS: 93306 ==

== ENCOUNTER 2021-10-22 09:32 | Day surgery (SDC) | payer MEDICARE ==
[~2021-10-22] VITALS: Ht 150 cm; Wt 53.1 kg
[2021-10-22] MEDS ORDERED: LACTATED RINGERS 1,000 ML IV STA (09:53)
[2021-10-22 10:00] VITALS: BP 137/75
[2021-10-22] MEDS ORDERED: HURRICAINE EXT TUBE (BENZOCAINE) XX PRN (10:00)
--- NOTE | 2021-10-22 10:14 | Progress Note-Pre Operative ---
Pre-Operative Progress Note Date of Available H&P: Oct 01, 2021 Date H&P Reviewed: Oct 22, 2021 Time H&P Reviewed: 10:12 History & Physical: H&P Reviewed, Patient Examed, No changes noted Pre-Operative Diagnosis: Hematochezia, Chronic Gastritis, dysphagia FLORA NORTON DO Oct 22, 2021 10:14
[2021-10-22] MEDS ORDERED: PROPOFOL INJECTION 50 ML IV ONE (11:10)
[2021-10-22 11:53] VITALS: BP 183/81
--- NOTE | 2021-10-22 11:53 | Anesthesia-General Post-Op ---
MAC Patient Condition Mental Status/LOC: Same as Preop Cardiovascular: Satisfactory Nausea/Vomiting: Absent Respiratory: Satisfactory Pain: Controlled Complications: Absent Post Op Complications Complications None Follow Up Care/Instructions Patient Instructions None needed. Anesthesiology Discharge Order Discharge Order Patient is doing well, no complaints, stable vital signs, no apparent adverse anesthesia problems. No complications reported per nursing. CHENCHO GEORGE CRNA Oct 22, 2021 11:53
[2021-10-22 11:55] VITALS: BP 173/79
--- NOTE | 2021-10-22 11:55 | Progress Note-Post Operative ---
Post-Operative Progess Note Surgeon (s)/Finance Business Manager (s) Surgeon FLORA NORTON DO Finance Business Manager: Talib Celis, MSIII Pre-Operative Diagnosis Hematochezia, Chronic Gastritis, dysphagia Post-Operative Diagnosis Gastritis Hiatal hernia GE jxn stricture Polyps diverticula sigmoid narrowing/stricture int hemorrhoids Procedure & Operative Findings Date of Procedure 10/22/21 Procedure Performed/Findings EGD with bx Colonoscopy with snare PROCEDURE NOTE: After informed consent was obtained, the patient was brought to the endoscopy suite, placed in bed in left lateral decubitus position. She was administered IV sedation by the INSPECTOR FILTERS who then monitored vitals the entire time, heart rate, blood pressure and pulse ox and the scope was inserted down the mouth through the esophagus into the stomach. Pushed into the stomach and noted some moderate gastritis, pushed past the antrum into the duodenum; duodenum looked good. Pulled back and did a biopsy of the antrum, then retroflexed the scope, saw a large hiatal hernia and some bleeding; took a picture of this. I believe the bleeding was coming from GE junction; there was some stricturing and the scope dilated the area when it pushed through. I also did a biopsy of the body of the stomach and then pulled the scope into the GE junction, took a picture of the hiatal hernia and then did a biopsy of the GE junction. Pushed the scope back into the stomach, suctioned all the air out of the stomach. At this point pulled the scope up the esophagus and out the mouth. Switched camera, switched gloves, went down below and started the colonoscopy. Pushed all the way into about 140 cm to get all the way to cecum; but when I released the loop I had about 90cm of scope in colon. On the way in noted diverticula and found a polyp in the descending colon; which I removed with snare polypectomy. Once in the cecum I took a picture of the appendiceal orifice, noted the ileocecal valve and then slowly withdrew the scope. I insufflated to look circumferentially at the espinoza starting in the cecum, up the ascending colon to the hepatic flexure, then down the transverse colon; where I found two more small polyps which I also removed with the snare. Continued to the splenic flexure, into the descending colon and down into the sigmoid. Through here there were a lot of diverticula and it seemed narrowed, twisty and mildly inflamed. I believe this is the beginning of a diverticular stricture due to repeated episodes of diverticulitis. Finally into the rectum, retroflexed in the rectal vault and saw some Grade II internal hemorr- hoids (which are probably cause of hematochezia) and took a picture of them. The patient tolerated the procedure and she recovered in the endoscopy suite. Recommended for repeat colonoscopy in 5 years Anesthesia Type IV sedation by INSPECTOR FILTERS Estimated Blood Loss Estimated blood loss (mL): scant Specimens/Packing Specimens Removed antral bx body of stomach bx GE jxn bx desc colon polyp transverse colon polyp FLORA NORTON DO Oct 22, 2021 11:55
--- NOTE | 2021-10-22 11:57 | Endoscopy Discharge Instruct ---
Endo Procedure/Findings Findings 1.: Hiatal Hernia, Gastritis, Other Findings (Esophageal stricture) 2.: Polyp 3.: Diverticulosis (with probable stricturing in sigmoid) 4.: Internal Hemorrhoids Discharge Instructions - Activity: You might feel a little sleepy until tomorrow. This is due to the medicine you received to relax you. Until tomorrow, you should: NOT drive a car, operate machinery or power tools. NOT drink any alcoholic beverages. NOT make any important decisions or sign importortant papers. Do not return to work until tomorrow, unless otherwise instructed. Resume previous activities tomorrow. Diet: Start by taking liquids. If you tolerate liquids, advance to solid food. 1.: EGD in 1 year 2.: Colonscopy in 5 years Notify Physician - If you experience excessive bleeding, unusual abdominal pain, fever, or chest pain, contact your doctor immediately. FLORA NORTON DO Oct 22, 2021 11:57
[2021-10-22 12:25] VITALS: BP 155/78
[2021-10-22 12:50] VITALS: BP 155/78
== END 2021-10-22 12:50 | disposition home or self-care (01) ==
LOC: ENDO 09:32
PROVIDERS: ATTEND Surgery
DX: D12.3 Benign neoplasm of transverse colon (principal); D12.4 Benign neoplasm of descending colon; K21.00 Gastro-esophageal reflux disease with esophagitis, without bleeding; K31.A11 Gastric intestinal metaplasia without dysplasia, involving the antrum; K31.89 Other diseases of stomach and duodenum; K44.9 Diaphragmatic hernia without obstruction or gangrene; K22.2 Esophageal obstruction; K29.50 Unspecified chronic gastritis without bleeding; K64.8 Other hemorrhoids; K57.30 Diverticulosis of large intestine without perforation or abscess without bleeding; K56.699 Other intestinal obstruction unspecified as to partial versus complete obstruction; Z79.899 Other long term (current) drug therapy; Z87.891 Personal history of nicotine dependence; Z28.310 Unvaccinated for COVID-19
CPT/HCPCS: 88305

== ENCOUNTER → 2022-06-30 | Outpatient (CLI) | payer MEDICARE ==
[~2022-06-30] MED LIST changes: +ALBU8.5H6 IH; +LORA-1389 PO; -LORA-53 PO; -RT-ALBUINH IH; +RT-ALBUTEROL SULF 2.5 MG/3 ML PRE-MIX VIAL INH ONE
== END ==
LOC: RT 12:56
PROVIDERS: ATTEND Nurse Practitioner Family
DX: I34.0 Nonrheumatic mitral (valve) insufficiency (principal)
CPT/HCPCS: 94060; 94726; 94729

== ENCOUNTER → 2022-06-30 | Outpatient (CLI) | payer MEDICARE ==
[~2022-06-30] MED LIST changes: -RT-ALBUTEROL SULF 2.5 MG/3 ML PRE-MIX VIAL INH ONE
== END ==
LOC: CARD 12:55
PROVIDERS: ATTEND Nurse Practitioner Family
DX: I08.0 Rheumatic disorders of both mitral and aortic valves (principal); J44.9 Chronic obstructive pulmonary disease, unspecified
CPT/HCPCS: 93306